=== PATIENT | male | born 1960 | race Caucasian/White ===

== ENCOUNTER 2019-03-08 17:24 | Inpatient (IN) | payer OTHER ==
[2019-03-08] MEDS ORDERED: SODIUM CHLORIDE 0.9% 500 ML 500 ML IV STA (17:39)
--- NOTE | 2019-03-08 17:42 | ED ---
General Adult HPI - General Stated complaint: LEFT SIDE NUMBNESS Time Seen by Provider: 03/08/19 17:33 Source: patient, family, RN notes reviewed, old records reviewed - History of Present Illness Initial comments: 59-year-old male history of hypertension presenting with 1 week of progressive weakness and numbness on the left side of his body. He was seen at outside hospital with these complaints on Sunday, he had CT performed and was ultimately discharged. He will follow-up with neurology on Sunday of this week as an outpatient. He was scheduled for an MRI but this cannot take place for approximately 5 weeks. His symptoms have failed to improve aneurysm progressed over this week. He's had weakness in the left leg, left arm and left facial droop with numbness in this distribution. No headache. No chest pain. No abdominal pain. No fever or chills. - Related Data Home Medications Medication Instructions Recorded Confirmed Ibuprofen [Motrin] 800 mg PO TID PRN 03/08/19 03/08/19 Metoprolol Succinate (ER) [Toprol 100 mg PO DAILY 03/08/19 03/08/19 Xl] NIFEdipine [NIFEdipine ER] 60 mg PO DAILY 03/08/19 03/08/19 Rosuvastatin Calcium [Crestor] 20 mg PO HS 03/08/19 03/08/19 Tamsulosin HCl [Flomax] 0.4 mg PO DAILY 03/08/19 03/08/19 cloNIDine HCL [Catapres] 0.2 mg PO DAILY 03/08/19 03/08/19 Allergies Allergy/AdvReac Type Severity Reaction Status Date / Time No Known Allergies Allergy Verified 03/08/19 18:14 Review of Systems ROS Statement: Those systems with pertinent positive or pertinent negative responses have been documented in the HPI. ROS Other: All systems not noted in ROS Statement are negative. General Exam General appearance: alert, in no apparent distress Head exam: Present: atraumatic, normocephalic Eye exam: Present: normal appearance, PERRL, EOMI ENT exam: Present: normal exam Neck exam: Present: normal inspection. Absent: tenderness, meningismus Respiratory exam: Present: normal lung sounds bilaterally. Absent: respiratory distress, wheezes Cardiovascular Exam: Present: regular rate, normal rhythm GI/Abdominal exam: Present: soft. Absent: distended, tenderness, guarding Extremities exam: Present: normal inspection, normal capillary refill. Absent: pedal edema, calf tenderness Neurological exam: Present: alert, oriented X3, motor sensory deficit. Absent: CN II-XII intact Psychiatric exam: Present: normal affect Skin exam: Present: warm, dry, intact. Absent: cyanosis, diaphoretic Course Vital Signs 03/08/19 17:38 Temperature 98.3 F Pulse Rate 70 Respiratory 18 Rate Blood Pressure 147/87 O2 Sat by Pulse 98 Oximetry EKG Findings - EKG Comments: EKG Findings:: EKG: Normal sinus rhythm, rate 69, GA interval 196, QRS duration 82, QTC 459 ST segment elevation. Medical Decision Making - Medical Decision Making 59-year-old male with one-week history of progressive left-sided weakness. Patient is well outside of time I for TPA or intervention. He is having increased difficulty ambulating. His daughter does state that he's had some urinary and bowel incontinence. Patient denies headache. Head CT was repeated, negative for acute intracranial hemorrhage mass effect. Patient has normal electrolytes, normal CBC. He is given an aspirin, started on statin. He will be admitted for further stroke workup, may require imaging of her spine given the bilateral and bladder issue. He will require likely physical therapy has had he's having increased gait instability. Case is discussed with Nettie urena for Dr. Rodríguez - Lab Data Result diagrams: 03/08/19 17:40 03/08/19 17:40 Lab Results 03/08/19 03/08/19 03/08/19 Range/Units 17:40 17:40 17:40 WBC 5.4 (3.8-10.6) k/uL RBC 4.87 (4.30-5.90) m/uL Hgb 14.2 (13.0-17.5) gm/dL Hct 43.3 (39.0-53.0) % MCV 88.9 (80.0-100.0) fL MCH 29.1 (25.0-35.0) pg MCHC 32.8 (31.0-37.0) g/dL RDW 15.6 H (11.5-15.5) % Plt Count 91 L (150-450) k/uL Neutrophils % 55 % Lymphocytes % 35 % Monocytes % 6 % Eosinophils % 2 % Basophils % 1 % Neutrophils # 3.0 (1.3-7.7) k/uL Lymphocytes # 1.9 (1.0-4.8) k/uL Monocytes # 0.3 (0-1.0) k/uL Eosinophils # 0.1 (0-0.7) k/uL Basophils # 0.0 (0-0.2) k/uL PT 11.4 (9.0-12.0) sec INR 1.1 (<1.2) APTT 25.7 (22.0-30.0) sec Sodium 141 (137-145) mmol/L Potassium 4.1 (3.5-5.1) mmol/L Chloride 108 H (98-107) mmol/L Carbon Dioxide 24 (22-30) mmol/L Anion Gap 9 mmol/L BUN 15 (9-20) mg/dL Creatinine 0.80 (0.66-1.25) mg/dL Est GFR (CKD-EPI)AfAm >90 (>60 ml/min/1.73 sqM) Est GFR (CKD-EPI)NonAf >90 (>60 ml/min/1.73 sqM) Glucose 102 H (74-99) mg/dL Calcium 9.2 (8.4-10.2) mg/dL Total Bilirubin 0.5 (0.2-1.3) mg/dL AST 42 (17-59) U/L ALT 36 (21-72) U/L Alkaline Phosphatase 90 (38-126) U/L Troponin I (0.000-0.034) ng/mL Total Protein 7.6 (6.3-8.2) g/dL Albumin 4.3 (3.5-5.0) g/dL 03/08/19 Range/Units 17:40 WBC (3.8-10.6) k/uL RBC (4.30-5.90) m/uL Hgb (13.0-17.5) gm/dL Hct (39.0-53.0) % MCV (80.0-100.0) fL MCH (25.0-35.0) pg MCHC (31.0-37.0) g/dL RDW (11.5-15.5) % Plt Count (150-450) k/uL Neutrophils % % Lymphocytes % % Monocytes % % Eosinophils % % Basophils % % Neutrophils # (1.3-7.7) k/uL Lymphocytes # (1.0-4.8) k/uL Monocytes # (0-1.0) k/uL Eosinophils # (0-0.7) k/uL Basophils # (0-0.2) k/uL PT (9.0-12.0) sec INR (<1.2) APTT (22.0-30.0) sec Sodium (137-145) mmol/L Potassium (3.5-5.1) mmol/L Chloride (98-107) mmol/L Carbon Dioxide (22-30) mmol/L Anion Gap mmol/L BUN (9-20) mg/dL Creatinine (0.66-1.25) mg/dL Est GFR (CKD-EPI)AfAm (>60 ml/min/1.73 sqM) Est GFR (CKD-EPI)NonAf (>60 ml/min/1.73 sqM) Glucose (74-99) mg/dL Calcium (8.4-10.2) mg/dL Total Bilirubin (0.2-1.3) mg/dL AST (17-59) U/L ALT (21-72) U/L Alkaline Phosphatase (38-126) U/L Troponin I <0.012 (0.000-0.034) ng/mL Total Protein (6.3-8.2) g/dL Albumin (3.5-5.0) g/dL Disposition Clinical Impression: Cerebrovascular accident Disposition: ADMITTED IP TO THIS [facility] Condition: Stable Is patient prescribed a controlled substance at d/c from ED?: No Referrals: Chase Boyd MD [Primary Care Provider] - 1-2 days Decision to Admit Reason: Admit from EC Decision Date: 03/08/19 Decision Time: 19:00
[2019-03-08 18:04] LABS: Basophils % (A) 1 %; Eosinophils # (A) 0.1 k/uL (0-0.7); Eosinophils % (A) 2 %; HCT 43.3 % (39.0-53.0); HGB 14.2 gm/dL (13.0-17.5); Lymphocytes # (A) 1.9 k/uL (1.0-4.8); Lymphocytes % (A) 35 %; MCH 29.1 pg (25.0-35.0); MCHC 32.8 g/dL (31.0-37.0); MCV 88.9 fL (80.0-100.0); Mean Platelet Volume 8.4; Monocytes # (A) 0.3 k/uL (0-1.0); Monocytes % (A) 6 %; Neutrophils % (A) 55 %; RBC 4.87 m/uL (4.30-5.90); RDW 15.6 % (11.5-15.5); WBC 5.4 k/uL (3.8-10.6)
[2019-03-08 18:09] LABS: INR 1.1 (<1.2); Partial Thromboplastin Time 25.7 sec (22.0-30.0); Prothrombin Time 11.4 sec (9.0-12.0)
[2019-03-08 18:22] LABS: ALT 36 U/L (21-72); AST 42 U/L (17-59); African American GFR (CKD) >90 (>60 ml/min/1.73 sqM); Albumin 4.3 g/dL (3.5-5.0); Alkaline Phosphatase 90 U/L (38-126); Anion Gap 9 mmol/L; Blood Urea Nitrogen 15 mg/dL (9-20); Calcium 9.2 mg/dL (8.4-10.2); Carbon Dioxide 24 mmol/L (22-30); Chloride 108 mmol/L (98-107); Glucose 102 mg/dL (74-99); Platelet Count 91 k/uL (150-450); Potassium 4.1 mmol/L (3.5-5.1); Sodium 141 mmol/L (137-145); Total Bilirubin 0.5 mg/dL (0.2-1.3); Total Protein 7.6 g/dL (6.3-8.2)
--- NOTE | 2019-03-08 18:42 | XR ---
EXAMINATION TYPE: XR chest 1V portable DATE OF EXAM: 03/08/2019 COMPARISON: NONE HISTORY: Altered mental status TECHNIQUE: Single frontal view of the chest is obtained. FINDINGS: There is no heart failure nor confluent pneumonic infiltrate. Costophrenic angles are ele r. IMPRESSION: No active cardiopulmonary disease. Normal heart.
--- NOTE | 2019-03-08 18:43 | CT ---
EXAMINATION TYPE: CT brain wo con DATE OF EXAM: 03/08/2019 COMPARISON: None HISTORY: numbness to left side of body CT DLP: 1260.4 mGycm Automated exposure control for dose reduction was used. FINDINGS: There is mild cerebral atrophy. There is no mass effect nor midline shift. There is no sign of intrac ranial hemorrhage. Calvarium is intact. IMPRESSION: MILD ATROPHY. NO ACUTE INTRACRANIAL ABNORMALITY.
[2019-03-08] MEDS ORDERED: ASPIRIN 325 MG TAB PO STA (18:54)
[2019-03-08] MEDS: SODIUM CHLORIDE 0.9% 1,000 ML IV SCH (21:10)
[2019-03-08] MEDS ORDERED: ACETAMINOPHEN TAB 325 MG TAB PO PRN (21:47)
[2019-03-08] MEDS: ATORVASTATIN 80 MG TAB PO SCH (21:50)
[2019-03-08] MEDS: NICOTINE 21MG/24HR PATCH TRANSDERM SCH (21:50)
[2019-03-09 03:48] LABS: Cholesterol 188 mg/dL (<200); HDL Cholesterol 29 mg/dL (40-60); LDL Cholesterol,Calculated 112 mg/dL (0-99); Triglycerides 237 mg/dL (<150)
--- NOTE | 2019-03-09 08:33 | US ---
EXAMINATION TYPE: US carotid duplex BILAT DATE OF EXAM: 03/09/2019 COMPARISON: NONE CLINICAL HISTORY: Stenosis. Pt states admitted in hospital for left side numbness, stroke symptoms EXAM MEASUREMENTS: RIGHT: Peak Systolic Velocity (PSV) cm/sec ----- Right CCA: 75.7 ----- Right ICA: 593.7 ----- Right ECA: 129.9 ICA/CCA ratio: 7.8 RIGHT: End Diastole cm/sec ----- Right CCA: 14.2 ----- Right ICA: 241.1 ----- Right ECA: 17.5 LEFT: Peak Systolic Velocity (PSV) cm/sec ----- Left CCA: 107.4 ----- Left ICA: 112.1 ----- Left ECA: 133.4 ICA/CCA ratio: 1.0 LEFT: End Diastole cm/sec ----- Left CCA: 27.2 ----- Left ICA: 35.7 ----- Left ECA: 22.0 VERTEBRALS (direction of flow): Right Vertebral: Antegrade Left Vertebral: Antegrade Rhythm: Normal Soft plaque within right proximal ICA causing significant elevated velocities and abnormal ratio report called to the patient's nurse. IMPRESSION: 1. Atherosclerotic changes with findings suggestive of a severe to critical stenosis involving the pr oximal right ICA. Criteria for Assigning % of Stenosis / Diameter reduction (Estimation based on the indirect measurements of the internal carotid artery velocities (ICA PSV). 1. Normal (no stenosis)=ICA PSV < 125 cm/s: ratio < 2.0: ICA EDV<40 cm/s. 2. Less than 50% stenosis=ICA PSV < 125 cm/s: ratio < 2.0: ICA EDV<40 cm/s. 3. 50 to 69% stenosis=ICA PSV of 125 to 230 cm/s: ration 2.0 ? 4.0: ICA EDV 40-100 cm/s. 4. Greater than 70% stenosis to near occlusion= ICA PSV > 230 cm/s: ratio > 4.0: ICA EDV > 100 cm/s. 5. Near occlusion= ICA PSV velocities may be low or undetectable: variable ratio and ICA EDV. 6. Total occlusion=unable to detect flow.
[2019-03-09] MEDS: ASPIRIN 325 MG TAB PO SCH (09:01)
[2019-03-09] MEDS: NICOTINE 21MG/24HR PATCH TRANSDERM SCH (09:02)
[2019-03-09] MEDS: METOPROLOL SUCCINATE (ER) 100 MG TAB.ER.24H PO SCH (09:02)
[2019-03-09] MEDS: TAMSULOSIN 0.4 MG CAP.ER.24H PO SCH (09:05)
[2019-03-09] MEDS: SODIUM CHLORIDE 0.9% 1,000 ML IV SCH (11:17)
[2019-03-09] MEDS ORDERED: CALCIUM CARBONATE 500 MG CHEWABLE PO PRN (11:42)
[2019-03-09] MEDS: PANTOPRAZOLE 40 MG TABLET PO SCH (12:21)
[2019-03-09] MEDS ORDERED: HYDROcodone/APAP 5-325MG 1 EACH TAB PO PRN (13:33)
[2019-03-09] MEDS ORDERED: ALPRAZolam 0.25 MG TAB PO PRN (13:33)
[2019-03-09] MEDS ORDERED: TEMAZEPAM 15 MG CAP PO PRN (13:33)
[2019-03-09] MEDS: cloNIDine HCL 0.2 MG TAB PO SCH (14:14)
[2019-03-09] MEDS: HEPARIN SODIUM,PORCINE 5,000 UNIT/ML 1 ML VIAL SQ SCH ×2 (14:15→19:48)
--- NOTE | 2019-03-09 15:29 | P.GSCN ---
History of Present Illness Consult date: 03/09/19 Reason for Consult: Carotid Stenosis Requesting physician: Saima Olivo History of present illness: This is a 59-year-old male with a history of hypertension and newer onset left sided numbness who has been admitted to [facility] under the care of Dr. Olivo. The patient states that a little more than a week ago he began having numbness in the left lower leg initially was below the knee and then cont inued up the leg. He was seen at outside hospital with those symptoms a CT was performed. He was ultimately discharged and seen in follow-up with the neurologist as an outpatient. In discussion with the patient and his daughter the neurologist was more concerned with a possible pinched nerve causing these issues, and MRI was ordered but was scheduled for approximate 5 weeks out. Over the past week she has continued to have numbness of his left leg and a heaviness with inability to move it as well. He is still able to move his leg overall. He denies any upper extremity symptoms. He denies any changes in speech pattern or visual symptoms. He has never had issues like this before. He has no trouble recollecting words. Review of Systems 12 point ROS perfomed, pertinent positives and negatives per the HPI - Musculoskeletal Reports as per HPI, Reports leg numbness/tingling Past Medical History Past Medical History: COPD, Hyperlipidemia, Hypertension History of Any Multi-Drug Resistant Organisms: None Reported Past Surgical History: No Surgical Hx Reported Additional Past Surgical History / Comment(s): carpal tunnel bilat hands with release, RT knee miniscus repair. Past Anesthesia/Blood Transfusion Reactions: No Reported Reaction Past Psychological History: No Psychological Hx Reported Smoking Status: Current every day smoker Past Alcohol Use History: None Reported Past Drug Use History: None Reported Medications and Allergies Home Medications Medication Instructions Recorded Confirmed Type Ibuprofen [Motrin] 800 mg PO TID PRN 03/08/19 03/08/19 History Metoprolol Succinate (ER) [Toprol 100 mg PO DAILY 03/08/19 03/08/19 History Xl] NIFEdipine [NIFEdipine ER] 60 mg PO DAILY 03/08/19 03/08/19 History Rosuvastatin Calcium [Crestor] 20 mg PO HS 03/08/19 03/08/19 History Tamsulosin HCl [Flomax] 0.4 mg PO DAILY 07/06/19 07/06/19 History cloNIDine HCL [Catapres] 0.2 mg PO DAILY 03/08/19 03/08/19 History Allergies Allergy/AdvReac Type Severity Reaction Status Date / Time No Known Allergies Allergy Verified 03/08/19 18:14 Surgical - Exam Vital Signs Temp Pulse Resp BP Pulse Ox 98.3 F 70 18 147/87 98 03/08/19 17:38 03/08/19 17:38 03/08/19 17:38 03/08/19 17:38 03/08/19 17:38 no evidence of carotid bruits. Cranial nerves II through XII grossly intact. No facial droop. No aphasia. Bilateral upper extremity strength equal bilaterally. Some decreased strength in left thigh. Equal plantar flexion bilaterally - General well developed, obese - Eyes PERRL, normal ocular movement - ENT normal mucosa, no congestion - Neck no masses, no bruits, no venous distension - Respiratory normal expansion, clear to auscultation - Cardiovascular Rhythm: regular Heart Sounds: normal: S1, S2 - Abdomen Abdomen: soft, non tender - Integumentary no rash - Neurologic normal coordination, normal sensation - Musculoskeletal other - Psychiatric oriented to time, oriented to person, oriented to place, speech is normal, memory intact Results Ultrasound report and imaging are reviewed. The right ICA peak systolic velocity measures 593.7 with a ratio of 7.8. This correlates with high-grade critical stenosis of the right ICA. The left ICA is less than 50% stenosis - Labs 03/08/19 17:40 03/08/19 17:40 Abnormal Lab Results - Last 24 Hours (Table) 03/08/19 03/08/19 03/08/19 Range/Units 17:40 17:40 17:40 RDW 15.6 H (11.5-15.5) % Plt Count 91 L (150-450) k/uL Chloride 108 H (98-107) mmol/L Glucose 102 H (74-99) mg/dL Triglycerides 237 H (<150) mg/dL LDL Cholesterol, Calc 112 H (0-99) mg/dL HDL Cholesterol 29 L (40-60) mg/dL Diabetes panel 03/08/19 03/08/19 Range/Units 17:40 17:40 Sodium 141 (137-145) mmol/L Potassium 4.1 (3.5-5.1) mmol/L Chloride 108 H (98-107) mmol/L Carbon Dioxide 24 (22-30) mmol/L BUN 15 (9-20) mg/dL Creatinine 0.80 (0.66-1.25) mg/dL Glucose 102 H (74-99) mg/dL Calcium 9.2 (8.4-10.2) mg/dL AST 42 (17-59) U/L ALT 36 (21-72) U/L Alkaline Phosphatase 90 (38-126) U/L Total Protein 7.6 (6.3-8.2) g/dL Albumin 4.3 (3.5-5.0) g/dL Triglycerides 237 H (<150) mg/dL HDL Cholesterol 29 L (40-60) mg/dL Calcium panel 03/08/19 Range/Units 17:40 Calcium 9.2 (8.4-10.2) mg/dL Albumin 4.3 (3.5-5.0) g/dL Pituitary panel 03/08/19 Range/Units 17:40 Sodium 141 (137-145) mmol/L Potassium 4.1 (3.5-5.1) mmol/L Chloride 108 H (98-107) mmol/L Carbon Dioxide 24 (22-30) mmol/L BUN 15 (9-20) mg/dL Creatinine 0.80 (0.66-1.25) mg/dL Glucose 102 H (74-99) mg/dL Calcium 9.2 (8.4-10.2) mg/dL Adrenal panel 03/08/19 Range/Units 17:40 Sodium 141 (137-145) mmol/L Potassium 4.1 (3.5-5.1) mmol/L Chloride 108 H (98-107) mmol/L Carbon Dioxide 24 (22-30) mmol/L BUN 15 (9-20) mg/dL Creatinine 0.80 (0.66-1.25) mg/dL Glucose 102 H (74-99) mg/dL Calcium 9.2 (8.4-10.2) mg/dL Total Bilirubin 0.5 (0.2-1.3) mg/dL AST 42 (17-59) U/L ALT 36 (21-72) U/L Alkaline Phosphatase 90 (38-126) U/L Total Protein 7.6 (6.3-8.2) g/dL Albumin 4.3 (3.5-5.0) g/dL Assessment and Plan Assessment: #1 severe high-grade right ICA stenosis, likely asymptomatic #2 left lower extremity numbness #3 isolated left proximal leg weakness #4 hyperlipidemia #5 hypertriglyceridemia #6 hypertension #7 BPH #8 COPD #9 active tobacco abuse Plan: At this time upon evaluation the patient and his clinical history, symptoms he describes are not typical of TIA/stroke. definitely would agree with neurology consultation and MRI to evaluate for any areas possible infarct. Regardless of this the patient does have severe high-grade stenosis of the right internal carotid artery with an area of soft plaque and at this time I did order a CT angiogram for surgical planning and added Plavix to his regimen. He is to maintain on aspirin, Plavix and statin. Discussion was had regarding tobacco cessation. He will likely need a carotid endarterectomy this admission given the high-grade stenosis and plaque morphology. Will await neurology input and MRI findings to schedule. Surgical clearance per medicine recommendations.
--- NOTE | 2019-03-09 15:44 | CT ---
EXAMINATION TYPE: CT angio neck DATE OF EXAM: 03/09/2019 HISTORY: Follow up carotid. Left leg numbness COMPARISON: None CT DLP: 948.4 mGycm. Automated Exposure Control for Dose Reduction was Utilized. TECHNIQUE: CTA scan of the neck is performed with IV Contrast, patient injected with 50 mL of Isovue 370, axial images are obtained, coronal and sagittal reformatted images are reviewed. Three-D recons tructed images are created on an independent workstation and reviewed. FINDINGS: There is normal branching pattern of the great vessels on the aortic arch. There is bilateral arteria l flow in the subclavian arteries. There is bilateral vertebral artery flow. There is arterial flow i n the common internal and external carotid arteries bilaterally. There is more than 80% stenosis at t he origin of the right internal carotid artery. I see no evidence of stenosis left internal carotid a rtery. There is no evidence of carotid artery aneurysm or dissection. There is no vertebral dissectio n. There is arterial flow in the vertebrobasilar artery system. IMPRESSION: severe stenosis at the origin of the right internal carotid artery.
[2019-03-09] MEDS: CLOPIDOGREL 75 MG TAB PO SCH (16:25)
[2019-03-09 16:58] LABS: Appearance,Urine Clear (Clear); Bilirubin,Urine Negative (Negative); Blood,Urine Negative (Negative); Color,Urine Yellow; Glucose,Urine (UA) Negative (Negative); Ketones,Urine Negative (Negative); Leukocyte Esterase,Urine Negative (Negative); Nitrite,Urine Negative (Negative); Protein,Urine Negative (Negative)
--- NOTE | 2019-03-09 19:14 | HP ---
HISTORY AND PHYSICAL DATE OF SERVICE: 03/09/2019 CHIEF COMPLAINT: Numbness of the left side of the body. HISTORY OF PRESENT ILLNESS: This 59-year-old gentleman with a past medical history of multiple medical problems including COPD, hypertension, hyperlipidemia, being followed by Dr. Boyd in the outpatient setting, was noted to have some numbness of the for the last 1 week. The patient had initially CT scan performed which did not show any acute abnormality. Patient had a followup with Neurology. The patient was seen by Dr. Metcalf as an outpatient. Apparently scheduled for MRI, but is not taking place the next 5 weeks. The symptoms of the numbness is persisting and the patient also has some weakness of the left leg and because of concerns some facial droop and the patient came to [facility] and admitted for evaluation and treatment. After admission, multiple evaluations were done. A CT scan of the brain was done which showed mild atrophy, otherwise no acute abnormalities and chest x-ray showed no active cardiopulmonary disease and carotid Doppler showed vascular changes findings suggestive of severe critical stenosis involving the proximal RCA. Patient admitted for evaluation and treatment. Neurology and vascular surgery evaluation has been sought. There is no history of fever, rigors. No headache, loss of consciousness or seizures. PAST MEDICAL HISTORY: History of COPD, hypertension, hyperlipidemia. MEDICATIONS: Prior to admission include home medications are: 1. Catapres 0.2 daily. 2. Flomax 0.4 daily. 3. Crestor 20 mg q.h.s. 4. Nifedipine ER 60 mg daily. 5. Toprol-XL 100 mg. 6. Motrin 80 mg t.i.d. p.r.n. ALLERGIES: None. FAMILY HISTORY: History of strokes in the family. SOCIAL HISTORY: History of smoking. No history of alcohol intake. REVIEW OF SYSTEMS: ENT: No diminished vision or hearing. CARDIOVASCULAR: No angina or palpitations. RESPIRATORY: As mentioned earlier. GI: No nausea. : No dysuria. NERVOUS SYSTEM: No numbness or tingling. IMMUNOLOGY: No history of asthma or hayfever. MUSCULOSKELETAL: As mentioned earlier. HEMATOLOGY: No history of anemia. ENDOCRINE: No history of diabetes or hypothyroidism. CONSTITUTIONAL: As mentioned earlier. DERMATOLOGY: Negative. RHEUMATOLOGY: Negative. PSYCHIATRY: As mentioned earlier. PHYSICAL EXAMINATION: Alert and oriented x3. Pulse is 66, blood pressure 178/64, respiration 18, temperature 98.1, pulse ox 98% on room air. HEENT: Conjunctivae normal. NECK: No jugular venous distention. CARDIOVASCULAR: S1, S2 muffled. RESPIRATORY: Breath sounds diminished in the bases. Scattered rhonchi and crackles. ABDOMEN: Soft, nontender. No mass palpable. LEGS: No edema, no swelling. NERVOUS SYSTEM: Higher function as mentioned. Moves all limbs, minimal sensory impairment. There is no weakness appreciated. SKIN: No ulcers, rash. JOINTS: No active deforming arthropathy. LABS: WBC 5.2, hemoglobin 14.2, platelets are 91 and glucose 102, platelets 237, LDL is 111. ASSESSMENT: 1. Acute numbness and weakness on the right side, possibly left-sided stroke. 2. Left-sided critical stenosis soft internal carotid artery. 3. Obesity with body mass index of 43.3. 4. Thrombocytopenia of undetermined etiology. 5. Increased random blood sugar. 6. Hyperlipidemia and hypertriglyceridemia. 7. History of hypertension. 8. Hyperlipidemia. 9. History of chronic obstructive pulmonary disease. 10.History of carpal tunnel syndrome. 11.History of nicotine dependence, continued ongoing. RECOMMENDATIONS AND DISCUSSION: This 59-year-old gentleman who presented with multiple medical issues, we will monitor the patient closely. Continue the current medications. We will initiate antiplatelet agents and as well as Lipitor. Neurology consultation. Also get a vascular consultation. MRI has been ordered. Otherwise smoking cessation advised. Continue the home medications. DVT prophylaxis. Proton pump inhibitors. Guarded prognosis because of multiple complex medical issues. Further recommendations to follow. Copy of dictation forwarded to Dr. Boyd who is the primary physician. See orders for details. MMODL / IJN: [id number] /
[2019-03-09] MEDS: ATORVASTATIN 80 MG TAB PO SCH (19:48)
[2019-03-10] MEDS: PANTOPRAZOLE 40 MG TABLET PO SCH (06:23)
[2019-03-10 07:45] LABS: Basophils % (A) 1 %; Eosinophils # (A) 0.1 k/uL (0-0.7); Eosinophils % (A) 2 %; HCT 44.8 % (39.0-53.0); HGB 14.4 gm/dL (13.0-17.5); Lymphocytes # (A) 1.7 k/uL (1.0-4.8); Lymphocytes % (A) 39 %; MCH 29.4 pg (25.0-35.0); MCHC 32.2 g/dL (31.0-37.0); MCV 91.1 fL (80.0-100.0); Mean Platelet Volume 7.6; Monocytes # (A) 0.3 k/uL (0-1.0); Monocytes % (A) 7 %; Neutrophils # (A) 2.1 k/uL (1.3-7.7); Neutrophils % (A) 49 %; RBC 4.92 m/uL (4.30-5.90); RDW 14.4 % (11.5-15.5); WBC 4.3 k/uL (3.8-10.6)
[2019-03-10 07:50] LABS: Platelet Count 94 k/uL (150-450)
[2019-03-10 08:00] LABS: African American GFR (CKD) >90 (>60 ml/min/1.73 sqM); Anion Gap 9 mmol/L; Blood Urea Nitrogen 14 mg/dL (9-20); Calcium 9.4 mg/dL (8.4-10.2); Carbon Dioxide 24 mmol/L (22-30); Chloride 109 mmol/L (98-107); Cholesterol 169 mg/dL (<200); Glucose 115 mg/dL (74-99); HDL Cholesterol 31 mg/dL (40-60); LDL Cholesterol,Calculated 94 mg/dL (0-99); Sodium 142 mmol/L (137-145); Triglycerides 219 mg/dL (<150)
[2019-03-10] MEDS ORDERED: LORazepam 2 MG/ML INJ IV STA ×3 (09:35→14:32)
--- NOTE | 2019-03-10 10:34 | ECHOF ---
Referral Reason:Thrombus MEASUREMENTS -------- HEIGHT: 182.9 cm WEIGHT: 144.7 kg BP: 178/64 RVIDd: 3.6 cm (< 3.3) IVSd: 1.4 cm (0.6 - 1.1) LVIDd: 4.8 cm (3.9 - 5.3) LVPWd: 1.5 cm (0.6 - 1.1) IVSs: 2.0 cm LVIDs: 3.4 cm LVPWs: 1.9 cm LAESV Index (A-L): 16.74 ml/m Ao Diam: 3.3 cm (2.0 - 3.7) AV Cusp: 1.8 cm (1.5 - 2.6) LA Diam: 4.0 cm (2.7 - 3.8) MV EXCURSION: 16.790 mm (> 18.000) MV EF SLOPE: 114 mm/s (70 - 150) EPSS: 0.3 cm MV E Cyrus: 1.02 m/s MV DecT: 180 ms MV A Cyrus: 1.14 m/s MV E/A Ratio: 0.90 RAP: 5.00 mmHg RVSP: 15.06 mmHg FINDINGS -------- Sinus rhythm. This was a technically difficult study with suboptimal views. The left ventricular size is normal. There is moderate concentric left ventricular hypertrophy. O verall left ventricular systolic function is normal with, an EF between 55 - 60 %. The diastolic fi lling pattern is normal for the age of the patient 14.00. The right ventricle is mildly enlarged. Normal LA size by volume 22+/-6 ml/m2. The right atrial size is normal. Lumason used Interatrial and interventricular septum intact. There is mild aortic valve sclerosis. There is no evidence of aortic regurgitation. There is no e vidence of aortic stenosis. Mild mitral annular calcification present. Mild mitral regurgitation is present. Mild tricuspid regurgitation present. There is no evidence of pulmonary hypertension. The right v entricular systolic pressure, as measured by Doppler, is 15.06mmHg. There is no pulmonic regurgitation present. The aortic root size is normal. IVC Not well visulized. Echo free space indicative of a pericardial fat pad. CONCLUSIONS -------- 1. Sinus rhythm. 2. This was a technically difficult study with suboptimal views. 3. The left ventricular size is normal. 4. There is moderate concentric left ventricular hypertrophy. 5. Overall left ventricular systolic function is normal with, an EF between 55 - 60 %. 6. The diastolic filling pattern is normal for the age of the patient 14.00 7. The right ventricle is mildly enlarged. 8. Normal LA size by volume 22+/-6 ml/m2. 9. The right atrial size is normal. 10. Lumason used 11. Interatrial and interventricular septum intact. 12. There is mild aortic valve sclerosis. 13. There is no evidence of aortic regurgitation. 14. There is no evidence of aortic stenosis. 15. Mild mitral annular calcification present. 16. Mild mitral regurgitation is present. 17. Mild tricuspid regurgitation present. 18. There is no evidence of pulmonary hypertension. 19. The right ventricular systolic pressure, as measured by Doppler, is 15.06mmHg. 20. There is no pulmonic regurgitation present. 21. The aortic root size is normal. 22. IVC Not well visulized. 23. Echo free space indicative of a pericardial fat pad. ABATTOIR SUPERVISOR: Effie Edward RDCS
--- NOTE | 2019-03-10 10:58 | P.PN ---
Subjective Progress Note Date: 03/10/19 Patient seen and examined. No changes overnight. Still with some numbness in his left leg. Objective - Vital Signs Vital signs: Vital Signs Temp 97.6 F 03/09/19 20:00 Pulse 65 03/10/19 04:00 Resp 16 03/10/19 04:00 BP 161/82 03/10/19 04:00 Pulse Ox 97 03/10/19 04:00 Intake & Output 03/09/19 03/10/19 03/10/19 18:59 06:59 18:59 Intake Total 480 240 Output Total 400 Balance 80 240 Weight 142.1 kg Intake: Oral 480 240 Output: Urine 400 Other: Voiding Method Toilet # Voids 1 1 - Exam No acute distress, in bed comfortably No respiratory distress. Heart regular rate and rhythm Abdomen soft obese nontender nondistended Extremities warm and dry. There is continued focal proximal weakness of the left leg, decreased sensation left leg. Cranial nerve II through XII are otherwise intact grossly - Labs CBC & Chem 7: 03/10/19 07:24 03/10/19 07:24 Labs: Abnormal Lab Results - Last 24 Hours (Table) 03/09/19 03/10/19 03/10/19 Range/Units 16:48 07:24 07:24 Plt Count 94 L (150-450) k/uL Chloride 109 H (98-107) mmol/L Glucose 115 H (74-99) mg/dL Triglycerides 219 H (<150) mg/dL HDL Cholesterol 31 L (40-60) mg/dL Ur Specific [place] 1.050 H (1.001-1.035) - Imaging and Cardiology CTA neck reviewed. Correlates well with ultrasound, high-grade stenosis, near occlusion of right internal carotid artery Assessment and Plan Assessment: #1 severe high-grade right ICA stenosis - ? Symptomatic #2 left lower extremity numbness #3 isolated left proximal leg weakness #4 hyperlipidemia #5 hypertriglyceridemia #6 hypertension #7 BPH #8 COPD #9 active tobacco abuse Plan: At this time upon evaluation the patient and his clinical history, symptoms he describes are not typical of TIA/stroke. Even so, discussed with neurology does think this could possibly be symptomatic. Patient undergoing MRI today. Re gardless of this the patient does have severe high-grade stenosis of the right internal carotid artery with an area of soft plaque. This is confirmed on computed tomography scan ordered yesterday. He is to maintain on aspirin, Plavix and statin. Discussion was had regarding tobacco cessation. We will tentatively plan for a carotid endarterectomy 03/11 pending medical clearance. Patient was discussed with neurology and nurse practitioner for medicine.
[2019-03-10] MEDS ORDERED: ceFAZolin 3 GM in SODIUM CHLORIDE 0.9% 100 ML IVPB ONE (11:03)
--- NOTE | 2019-03-10 11:20 | CONS ---
CONSULTATION DATE OF SERVICE: 03/10/2019 REFERRING PHYSICIAN: Dr. Olivo. HISTORY OF PRESENT ILLNESS: Thank you for allowing me to evaluate Gurmeet Elkins who is a 59-year-old right- handed white male who presented to [facility] on 03/08/2019 for evaluation of left- sided numbness/weakness. The patient states that about 1-1/2 weeks ago, he woke up and noted a numbness/tingling sensation involving the left lower extremity distal to the knee. He has had issues with lower extremity swelling and initially attributed this sensation to the swelling and therefore did not seek medical attention "right away." Despite the numbness and tingling, the patient states the strength and coordination in the left foot and left lower extremity were intact, he denied new back pain or similar symptoms on the right lower extremity. He has never had similar symptoms in the past. Five to six days later, the patient states that he woke up and noted numbness involving the entire left lower extremity as well as the left side of the torso extending above the nipple line and when he went to use a Q-tip, noted this similar sensation involving the left ear and left side of the face. He states the left arm was spared and there were no similar symptoms on the right. This was accompanied by weakness involving the left lower extremity although the patient still was able to walk on it. He denied weakness involving the left upper extremity or a left facial droop. When the symptoms developed, there was no associated vertigo, diplopia, dysarthria, difficulty chewing/swallowing, or hiccups. He denies previous history of stroke or seizure. He was not taking aspirin or other anti-platelet/anticoagulant medication at the time of this event. He denies neck pain or Lhermitte phenomenon. At this time, the patient states the numbness and left lower extremity weakness is are a "little better" and he extended his left lower extremity against gravity, stating that this was better than he was able to do over the last few days. The patient states when the increased left-sided symptoms developed, he did present to [facility] who evaluated the patient and subsequently discharged him home, scheduling him for an outpatient neurologic evaluation, which the patient believes took place on 03/07/2019, at which time he was set up for an MRI of the brain/cervical spine although that appointment was 5 weeks out and family wanted to pursue a quicker evaluation prompting him to present to [facility]. During this hospitalization, the patient had a carotid ultrasound, which demonstrated severe to critical stenosis of the right internal carotid artery and CTA of the neck vessels confirmed greater than 80% stenosis of the right internal carotid artery without significant stenosis on the left. Vascular Surgery has already evaluated the patient and he is currently maintained on Plavix, aspirin 325 mg daily, and Lipitor. ALLERGIES: No known drug allergies. HOME MEDICATIONS: Clonidine, Flomax, Crestor, nifedipine, Toprol-XL, and Motrin. PAST MEDICAL HISTORY: Hypertension, COPD, hyperlipidemia, obesity, tobacco abuse, and left ear deafness (which patient states has been present over the past 10-12 years). PAST SURGICAL HISTORY: Bilateral carpal tunnel release and right knee arthroscopy. SOCIAL HISTORY: The patient smokes 1 pack per day and smoked for 40+ years. He denied alcohol or drug use. He is with 3 daughters and lives in a house with his daughter. He has not been using any assistive devices to ambulate at home prior to this event. FAMILY HISTORY: The patient's mother is with a history of ovarian cancer. Father is alive at 84 with history of cardiac arrhythmia and arthritis. There is no family history of epilepsy, Parkinson's or other neurologic disease. REVIEW OF SYSTEMS: Fourteen systems are reviewed and no additional points are identified. The review of systems is documented in the history and physical. PHYSICAL EXAM: In general, patient is a pleasant, a fair historian. Affect is normal. He is overweight, receptive to the examiner and appears of stated age. There are no family members at the bedside. When I entered the room, the patient was ambulating despite she has a left lower extremity weakness. VITAL SIGNS: Blood pressure is 161/82 with pulse of 65, respirations 16, temperature 97.6, weight is 142 kg on a 6 foot 0-inch frame. SKIN/EXTREMITIES: Mild arthritic change is noted in the hands. HEAD AND NECK: No tenderness or signs of trauma. Neck is supple without meningeal signs. Arteries are nontender and without bruits. HEART: Regular rate and rhythm. HIGHER CORTICAL FUNCTION: MENTAL STATUS: Patient was alert and oriented to time, place, and person. He was able to name, repeat and read. There was no right and left disorientation, finger- agnosia, extinction to double simultaneous stimulation or dysarthria. CRANIAL NERVES 2 THROUGH 12: Pupils are equal and reactive to light symmetrically. No afferent pupillary defect. Visual dosdon are intact to confrontation. III, IV, : No ptosis. Extraocular movements are full. No nystagmus. V: Patient reports diminution to light touch involving the left size (as compared to the right). Pinprick was symmetric. Motor 5 intact. VII: No facial asymmetry. VII: Acuity. reduced finger nub on the left. The patient reports long-standing left ear deafness. VIII, X: Palate roc in the midline. XI: Trapezius intact. XII: Tongue protruded midline without fasciculation or atrophy. MOTOR EXAMINATION: There is no pronator drift. Normal bulk and tone is noted in all major muscle groups with no involuntary movements noted. Strength is 5/5 involving the bilateral upper and right lower extremity. Strength in the left lower extremity was 5/5 except at the iliopsoas and hamstrings, which were all 4+/5. SENSORY: Patient reports diminution to pinprick and light touch involving the left lower extremity as compared to the right upper extremities were symmetric. The patient reports reduction in sensation along the thorax extending to the cervicothoracic junction. REFLEXES: Right side listed first: Biceps 1/1, brachioradialis 1/1, triceps 1/1, patella 2/2. Ankle 0/0. Plantar responses are flexor on the right and extensor on the left. Morales's is absent. COORDINATION: Bhquma-gd-tkku movements are intact. Adan-hz-nldu demonstrates clear dysmetria with left eusg-mt-kybt, this was intact on the right. Rapid alternating movements are symmetric with finger tapping, foot tapping was mildly slowed on the left. DIAGNOSTIC TESTING: Patient had a CT scan of the brain without contrast, which demonstrated no acute pathology. As described above, Carotid ultrasound and CTA of the neck vessels demonstrated greater than 80% stenosis. The right internal carotid artery was without significant stenosis on the left. Telemetry has revealed normal sinus rhythm. LAB WORK: The patient's lab work demonstrates a white blood count of 4.3 with a hemoglobin of 14.4, platelet count 94. Sodium 142, potassium 4.0, BUN 14 with a creatinine of 0.88. INR 1.1. Urinalysis negative. Cholesterol 169 with triglycerides of 219, LDL 94, HDL 31, calcium 9.4. ALT 36, AST 42, troponin negative. IMPRESSION: 1. Left face/thorax/lower extremity numbness with left lower extremity weakness/ataxia, likely secondary to right hemispheric infarct. With the reported sensory level at the cervicothoracic junction, it is difficult to exclude cervical spine pathology, although the patient denies neck pain/Lhermitte's phenomenon. If ischemic in nature, etiology is likely secondary to the issues discussed ion #2. The patient's risk factors for stroke include hypertension, hyperlipidemia, obesity, tobacco abuse, carotid occlusive disease, and male sex. The patient was not on aspirin or other anti-platelet/anticoagulant medication at the time of this event. 2. Greater than 80% stenosis of right internal carotid artery per CTA without significant stenosis on the left. 3. Thrombocytopenia. 4. Medical problems including long-standing left ear deafness and chronic obstructive pulmonary disease. RECOMMENDATION: 1. I discussed my impression and plan with the patient and he expressed understanding. 2. Agree with pursuing MRI of the brain, will add MRI of the cervical spine with and without contrast. 3. Agree with Plavix/aspirin and Lipitor. 4. The patient has already been seen by Vascular Surgery. 5. Risk factor modification, strongly recommend the patient quit smoking!! 6. Physical therapy evaluation and treatment. 7. Echocardiogram is pending at the time of this dictation, the patient is maintained on telemetry, which has demonstrated normal sinus rhythm to date. 8. Will follow with you. 9. Thank you for allowing me to participate in the care of your patient. MMODL / IJN: [id number] / MARLENI
[2019-03-10] MEDS: NICOTINE 21MG/24HR PATCH TRANSDERM SCH (11:32)
[2019-03-10] MEDS: ASPIRIN 325 MG TAB PO SCH (11:33)
[2019-03-10] MEDS: METOPROLOL SUCCINATE (ER) 100 MG TAB.ER.24H PO SCH (11:34)
[2019-03-10] MEDS: CLOPIDOGREL 75 MG TAB PO SCH (11:34)
[2019-03-10] MEDS: cloNIDine HCL 0.2 MG TAB PO SCH (11:34)
[2019-03-10] MEDS: TAMSULOSIN 0.4 MG CAP.ER.24H PO SCH (11:35)
[2019-03-10] MEDS: HEPARIN SODIUM,PORCINE 5,000 UNIT/ML 1 ML VIAL SQ SCH ×2 (11:36→20:16)
--- NOTE | 2019-03-10 15:21 | MR ---
EXAMINATION TYPE: MR brain wo con DATE OF EXAM: 03/10/2019 COMPARISON: CT brain 03/08/2019 HISTORY: left sided numbness, lack of coordination, r/o cva CONTRAST: Performed utilizing 0 mL intravenous Gadavist gadolinium contrast. TECHNIQUE: Multiplanar, multiecho imaging on a 3.0 Gisselle magnet is performed through the brain. Stud y is not performed within 24 hours of arrival to the hospital. Fast sequencing was performed due to c laustrophobia despite medication. The craniovertebral junction is normal. The pituitary is normal. Diffusion-weighted imaging is performed. There are multiple cortical and subcortical hyperintensitie s to the bilateral centrum semiovale. This is greater on the right than on the left. Additionally, th ere is a large occipital cortical infarct on the right near the vertex. Punctate hyperintensities adj acent to the occipital horn of the right lateral ventricle. The hyperintensities on inversion recovery weighted sequence corresponding to the diffusion abnormali ties. Ventricles and sulci are appropriate for the patient age. IMPRESSIONS: 1. Multiple acute cortical and subcortical ischemic type changes evident on diffusion and inversion r ecovery weighted sequences.
--- NOTE | 2019-03-10 17:09 | PN ---
PROGRESS NOTE DATE OF SERVICE: 03/10/2019 This 59-year-old gentleman who was admitted with significant weakness and numbness of the left foot was having significant stenosis of the right internal carotid artery, also. The patient was recommend to have an MRI scan to rule out an acute stroke. Vascular Surgery is planning surgery tomorrow. Otherwise the patient is medically stable. A 2D echo with Doppler done by Cardiology showed an ejection fraction of about 50% to 60% and no significant valvular abnormalities. The EKG is also noted. Past medical history reviewed. REVIEW OF SYSTEMS: CARDIOVASCULAR SYSTEM: No angina, palpitations. RESPIRATORY SYSTEM: No cough, hemoptysis. GI: No nausea, vomiting. : No dysuria or retention. NERVOUS SYSTEM: As mentioned earlier. CURRENT MEDICATIONS: Reviewed. They include: 1. Tylenol 650 q.6. 2. [place] 5 mg q.6. 3. Xanax 0.25 t.i.d. 4. Aspirin 325 mg daily. 5. Lipitor 80 mg. 6. Tums 1000 mg b.i.d. 7. Plavix 75 mg daily. 8. Heparin 5000 units subcutaneously b.i.d. 9. Toprol-XL 100 mg p.o. daily. 10.Habitrol 21 daily. 11.Procardia XL 60 mg daily. 12.Protonix 40 mg daily. 13.Flomax 0.4 daily. 14.Restoril 15 mg at bedtime p.r.n. PHYSICAL EXAMINATION: Patient is alert, oriented x3. Pulse 65, blood pressure 161/82, respirations 16, temperature normal, pulse ox 97% on room air. HEENT: Conjunctivae normal. Oral mucosa moist. NECK: No jugular venous distention. No carotid bruit. No lymph node enlargement. CARDIOVASCULAR SYSTEM: S1, S2 muffled. No S3. No S4. RESPIRATORY SYSTEM: Breath sounds diminished at the bases. No rhonchi. No crackles. ABDOMEN: Soft, obese, nontender. No mass palpable. LEGS: No edema. No swelling. NERVOUS SYSTEM: Minimal weakness and some numbness also present on the left side. SKIN: No ulcer, rash, bleeding. JOINTS: No active deforming arthropathy. LABS/IMAGING: WBC 4.3, platelets 94. Sodium 142, potassium 4, and glucose 115. Triglycerides 219. UA noted. Chest x-ray done on admission showed no active cardiopulmonary disease. ASSESSMENT: 1. Acute numbness and weakness on the left side of the body, possibly caused by a right-sided stroke. 2. Right-sided critical carotid stenosis of internal carotid artery. 3. Obesity with body mass index of 43.3. 4. Thrombocytopenia of undetermined etiology. 5. Increased random blood sugar. 6. Hyperlipidemia. 7. Hypertriglyceridemia. 8. History of hypertension. 9. History of chronic obstructive pulmonary disease. 10.History of carpal tunnel syndrome. 11.History of nicotine dependence, continued ongoing. RECOMMENDATIONS AND DISCUSSION: In this 59-year-old gentleman who presented with multiple medical issues, at this time I recommend to continue current medications, continue symptomatic treatment. Continue with the antiplatelet agents and antihyperlipidemic agents. Otherwise, trying to obtain MRI; however, the patient is clinically stable and cleared for surgery tomorrow by Dr. Sandoval. I will continue to follow. Further recommendations to follow. See orders for further details. MMODL / IJN: [id number] / MTDD
[2019-03-10] MEDS: SODIUM CHLORIDE 0.9% 1,000 ML IV SCH (20:06)
[2019-03-10] MEDS: ATORVASTATIN 80 MG TAB PO SCH (20:16)
[2019-03-11] MEDS: TAMSULOSIN 0.4 MG CAP.ER.24H PO SCH (05:57)
[2019-03-11] MEDS: HEPARIN SODIUM,PORCINE 5,000 UNIT/ML 1 ML VIAL SQ SCH ×2 (05:57→20:21)
[2019-03-11] MEDS: METOPROLOL SUCCINATE (ER) 100 MG TAB.ER.24H PO SCH (06:01)
[2019-03-11] MEDS: ASPIRIN 325 MG TAB PO SCH (06:01)
[2019-03-11] MEDS: PANTOPRAZOLE 40 MG TABLET PO SCH (06:01)
[2019-03-11] MEDS: CLOPIDOGREL 75 MG TAB PO SCH (06:01)
[2019-03-11] MEDS: cloNIDine HCL 0.2 MG TAB PO SCH (06:01)
[2019-03-11 06:51] LABS: Basophils % (A) 1 %; Eosinophils # (A) 0.1 k/uL (0-0.7); Eosinophils % (A) 2 %; HCT 42.8 % (39.0-53.0); HGB 13.9 gm/dL (13.0-17.5); Lymphocytes # (A) 1.8 k/uL (1.0-4.8); Lymphocytes % (A) 36 %; MCH 29.1 pg (25.0-35.0); MCHC 32.4 g/dL (31.0-37.0); MCV 89.9 fL (80.0-100.0); Mean Platelet Volume 8.1; Monocytes # (A) 0.4 k/uL (0-1.0); Monocytes % (A) 8 %; Neutrophils # (A) 2.7 k/uL (1.3-7.7); Neutrophils % (A) 53 %; Platelet Count 102 k/uL (150-450); RBC 4.76 m/uL (4.30-5.90); RDW 14.2 % (11.5-15.5); WBC 5.2 k/uL (3.8-10.6)
[2019-03-11 07:08] LABS: African American GFR (CKD) >90 (>60 ml/min/1.73 sqM); Anion Gap 9 mmol/L; Blood Urea Nitrogen 13 mg/dL (9-20); Calcium 9.3 mg/dL (8.4-10.2); Carbon Dioxide 24 mmol/L (22-30); Chloride 110 mmol/L (98-107); Glucose 95 mg/dL (74-99); Sodium 143 mmol/L (137-145)
[2019-03-11] MEDS ORDERED: SCOPOLAMINE 1.5MG/72HR PATCH TRANSDERM ONE (09:29)
[2019-03-11] MEDS ORDERED: DEXAMETHASONE SOD PHOSPHATE 10 MG/ML 1 ML VIAL IV ONE (09:29)
[2019-03-11] MEDS ORDERED: ONDANSETRON 4 MG/2 ML VIAL IVP ONE (09:29)
[2019-03-11] MEDS ORDERED: MIDAZOLAM 2 MG/2 ML VIAL IV PRN (09:29)
[2019-03-11] MEDS ORDERED: WATER FOR INJECTION IV SCH ×2 (09:29)
[2019-03-11] MEDS ORDERED: STERILE IV SCH ×2 (09:29)
[2019-03-11] MEDS ORDERED: HYDROmorphone 0.5 MG/0.5 ML SYRINGE IVP PRN (09:29)
[2019-03-11] MEDS ORDERED: PHENYLEPHRINE IV SCH ×2 (09:29)
[2019-03-11] MEDS ORDERED: LACTATED RINGERS 1,000 ML IV SCH (09:29)
[2019-03-11] MEDS ORDERED: IV FLUID CONTINUATION 900 ML IV ONE (09:30)
[2019-03-11] MEDS ORDERED: LABETALOL 5 MG/ML VIAL MDV ONE (09:39)
[2019-03-11] MEDS ORDERED: fentaNYL (PF) 50 MCG/ML 2 ML AMP ONE (09:39)
[2019-03-11] MEDS ORDERED: HEPARIN SODIUM,PORCINE 10,000 UNIT/ML 1 ML VIAL ONE (09:39)
[2019-03-11] MEDS ORDERED: PROTAMINE SULFATE 10 MG/ML 5 ML VIAL IV ONE (09:39)
[2019-03-11] MEDS ORDERED: PHENYLEPHRINE-0.9% NACL SYG 1 MG/10 ML SYRINGE ONE (09:39)
[2019-03-11] MEDS ORDERED: GLYCOPYRROLATE 0.2 MG/ML 2 ML VIAL ONE (09:39)
[2019-03-11] MEDS ORDERED: NEOSTIGMINE 1 MG/ML 10 ML VIAL ONE (09:39)
[2019-03-11] MEDS ORDERED: ROCURONIUM BROMIDE 10 MG/ML 10 ML VIAL IV ONE (09:39)
[2019-03-11] MEDS ORDERED: PROPOFOL 10 MG/ML 20 ML VIAL IV ONE (09:39)
[2019-03-11] MEDS ORDERED: SUCCINYLCHOLINE CHLORIDE 100 MG/5 ML SYR IV ONE (09:39)
[2019-03-11] MEDS ORDERED: ceFAZolin 1,000 MG VIAL ONE (09:39)
[2019-03-11] MEDS ORDERED: LIDOCAINE 1% INJ 10MG/ML (20 ML MDV) ONE (09:39)
[2019-03-11] MEDS ORDERED: ePHEDrine SULFATE/0.9% NACL/PF 50 MG/5 ML SYRINGE IV ONE (09:39)
[2019-03-11] MEDS ORDERED: MIDAZOLAM 2 MG/2 ML VIAL ONE (09:39)
[2019-03-11] MEDS ORDERED: PHENYLEPHRINE 40 MG in SODIUM CHLORIDE 0.9% 250 ML IV SCH (09:45)
[2019-03-11] MEDS ORDERED: LIDOCAINE 1% 20 ML VIAL (10MG/ML) FOR IV START INTRADERMA ONE (09:50)
--- NOTE | 2019-03-11 10:31 | P.ANPRN ---
Procedure Note - Anesthesia - Invasive Line Left Arterial Line Time Out Performed: Yes Date of Procedure: 03/11/19 Time of Procedure: 10:10 Location of Patient Procedure: PreOp Preparation: Sterile Prep, Sterile Dressing Arterial Line Location: Radial Ultrasound Used: Yes Needle Guage: 20 Narrative: After previous attempt by [employer], left forearm prepped and draped in sterile fashion. Under direct u/s visualization, 20 g arrow catheter advanced into left radial artery. Pulsatile blood flow obtained. Guidewire inserted and catheter advanced over guidewire. Line sutured in place. Pt tolerated well.
--- NOTE | 2019-03-11 10:46 | PN ---
PROGRESS NOTE DATE OF SERVICE: 03/11/2019 I had the pleasure of re-evaluating Gurmeet Elkins. The patient is lying down, 2 daughters are currently at the bedside and he denies new complaints. He continues to have left-sided numbness, but states the strength in his left lower extremity is improving and right side is asymptomatic. The patient is actually about to leave the medical floor for planned right carotid endarterectomy. The patients' daughter's help to clarify that the patient presented to [facility] last Sunday (1 week ago) and was subsequently seen by an outpatient neurologist the next day, who set him up for MRIs at an open unit, although these were scheduled to be several weeks out and as a result, family decided to bring the patient to the hospital. CURRENT MEDICATIONS: Tylenol, Xanax, aspirin 325 mg q. day, Lipitor, Tums, Catapres, Plavix 75 mg q. day, heparin subcu, [place], Toprol-XL, Procardia XL, Protonix, Flomax, and Restoril. PHYSICAL EXAM: Upon arrival in the patient's room, he was sitting in a bedside chair. He is a fair historian, overweight and appears of stated age. The patient's 2 daughters are at the bedside. VITAL SIGNS: Blood pressure is 133/70 with a pulse of 68, respirations 16, temperature 98.1. Skin, extremities are with mild arthritic changes are noted in the hands. Higher cortical function. Mental status the patient was alert, oriented to time, place, and person. There is no aphasia or dysarthria. Claims to the 12 are intact. Except for diminution to pinprick/light touch on the left side of the face as compared to the right and reduced hearing q.d. to finger rub on the left. Motor examination there is no pronator drift. Normal bulk and tone is noted in all major muscles with omentum showed upper strength is 5/5 except that the left lower extremity where strength was 4/5 at the iliopsoas and hamstrings. SENSORY: Patient reports diminution to pinprick and light touch involving the left lower extremity as compared to the right. Upper extremities were symmetric. REFLEXES: Right side was first addressed 1/1, patella 2/2, ankle 0/0. Plantar response extensor on the left and flexor on the right. COORDINATION: There is dysmetria with left igel-iy-kjdm movements. Finger-to- nose are intact, bilaterally. DIAGNOSTIC TESTING: The patient had an MRI of the brain completed without contrast, which demonstrated multiple acute cortical and subcortical ischemic areas, more prominent on the right with the largest area of in the right parietal-occipital region. These appear to be confined to the anterior circulation. MRI of the cervical spine is not available for my review and unclear if this was completed, as the patient is quite claustrophobic and required multiple attempts even to get the MRI of the brain done. CBC demonstrated white blood cell count of 5.2, hemoglobin of 13.9, platelet count 102. IMPRESSION: 1. Multiple, bilateral (right greater than left) cortical/subcortical infarcts. The etiology of the right-sided events may be at least in part related to the documented severe right carotid stenosis, although with evidence of bilateral events, cardioembolic phenomenon should be excluded. The patient's risk factors for stroke include hypertension, hyperlipidemia, obesity, tobacco abuse, carotid occlusive disease, and male sex. The patient was not on aspirin or other anti- platelet/anticoagulant medication at the time of this event. 2. Greater than 80% stenosis of the right internal carotid artery per CTA without significant stenosis on the left, the patient is going for right carotid endarterectomy later today. 3. Thrombocytopenia. 4. Medical problems including long-standing left ear deafness and chronic obstructive pulmonary disease. RECOMMENDATION: 1. Cardiology consultation for possible transesophageal echocardiogram/possible loop recorder placement. To date, the patient has apparently demonstrated no cardiac arrhythmias. 2. Will attempt to obtain MRI of the cervical spine if this was not completed. 3. Risk factor modification as the patient has been maintained on Plavix/aspirin and Lipitor. 4. The patient is going for a right carotid endarterectomy today. 5. Would strongly recommend the patient quit smoking. 6. Physical therapy evaluation and treatment. 7. Will follow with you. MMODL / IJN: [id number] / MARLENI
[2019-03-11] MEDS ORDERED: BUPIVACAINE (PF) 0.5% 30 ML VIAL SQ ONE ×2 (11:10)
[2019-03-11] MEDS ORDERED: LACTATED RINGERS 1,000 ML IV ONE (13:00)
--- NOTE | 2019-03-11 13:42 | P.OP ---
Description of Procedure: Date of Procedure: 03/11/2018 Preoperative Diagnosis: Symptomatic right internal carotid artery stenosis, soft hemorrhagic plaque Postoperative Diagnosis: Same Procedure(s) Performed: Right carotid endarterectomy with patch angioplasty Anesthesia: REAL Surgeon: Kimberlyn Sandoval DO Estimated Blood Loss (ml): 75ml IV Fluids: 700cc crystalloid Urine Output: 135cc Specimen: Right carotid plaque Condition: stable Disposition: PACU Indications for Procedure: The patient is a 59-year-old male with hypertension, hyperlipidemia, COPD and tobacco abuse who recently was admitted after having left lower extremity numbness up into his thorax and sparing of his upper extremities. He also has facial numbness. He was seen at an outside facility and was being set up for an outpatient MRI. At the time of admission to this hospital, he states the numbness is continued, and that his leg feels heavy and weak. He underwent an carotid duplex which revealed high-grade right internal carotid artery stenosis with a ratio of 7.8 and a velocity of 573. He was seen in evaluation by the neurologist, Dr Russo, who felt that this could be some component of a symptomatic right internal carotid artery due to his high-grade stenosis. An MRI was ordered showing cortical lesions but also areas of cortical lesions on the left as well as an occipital lesion. Discussion was had with the neurologist again who felt that the areas of infarct in the right cortex could be due to the carotid itself. He felt that it was safe to proceed with a carotid endarterectomy given the findings of the MRI. Risks and benefits were discussed with the patient and his family. They agreed and were willing to proceed. During dissection, the vagus nerve was found to be laying in the anterior position, it was kept free from dissection along with the hypoglossal nerve which was low. The plaque was essentially very focal, near occlusive and soft with areas of intraplaque hemorrhage. Description of Procedure: After written informed consent was obtained the patient all risks benefits and competitions were described the patient is brought to the operative suite and laid in a supine position. The area of the neck was prepped and draped in usual sterile fashion after appropriate anesthetic was performed per the anesthesiologist. A timeout was performed in normal fashion antibiotics were administered prior to incision. An oblique incision was then created just anterior to the sternocleidomastoid musculature with a 10 blade scalpel and dissection was carried down to the carotid sheath. The carotid sheath was then entered. The vagus nerve was found to be an anterior positioning and left free from dissection. Dissection was carried on the cephalad direction and the facial vein was identified. It was ligated and divided. The common carotid, internal carotid, external carotid and superior thyroid arteries were located and dissected free in a meticulous fashion circumferentially and controlled with vessel loops. Attention was turned to locating the hypoglossal nerve which was also spared. Once controlled patient was administered heparin and followed with ACTs for appropriate heparinization. Once ACT was above 200 the proximal and distal aspects of the dissection were then controlled with vascular clamps. Arteriotomy was then c reated with 11 blade scalpel and extended with Maher Hayden scissors. Utilizing pressure tubing stump pressures were obtained and were 54mmHg. No shunt was required and endarterectomy was then performed with a Sheridan elevator. The plaque was then feathered at the distal aspect and the internal carotid artery and removed. The area was copiously irrigated with heparinized saline and all free debris was removed. A 0.8 x 8 cm bovine pericardial patch was then chosen and patch angioplasty was performed with 6-0 Prolene suture in a running fashion. Prior to last sutures being placed the inflow was released flushing any free debris out of the patch. This was reclamped and the internal carotid artery was released revealing good brisk flow and was once again reclamped. The external carotid and superior thyroid artery were then released followed by the common carotid artery to allow any free debris to be flushed into the external system. Internal carotid artery control was then released. Good pulsatile flow was noted through the patch and a Doppler was utilized demonstrating good brisk flow into the internal, external carotid arteries without any signs of obstruction. Hemostasis was then assured with Surgicel. A 10-Jordanian ASHLEY drain was then placed in normal fashion and secured with 3-0 silk suture. The incision was then closed in a multilayer fashion after hemostasis was assured. The skin was then cleansed and dressings were placed. Patient tolerated the procedure well and was following commands and moving all extremities, there was some residual weakness of the left lower extremity as previous. Patient was then sent to PACU for recovery.
[2019-03-11] MEDS ORDERED: BENZOCAINE/MENTHOL LOZENG 1 EACH LOZENGE MUCOUS MEM PRN (14:03)
[2019-03-11] MEDS ORDERED: TRIMETHOBENZAMIDE 100 MG/ML 2 ML VIAL IM PRN (14:03)
[2019-03-11] MEDS ORDERED: MORPHINE SULFATE 2 MG/ML SYRINGE IVP PRN (14:03)
[2019-03-11] MEDS ORDERED: MAG HYDROX/AL HYDROX/SIMETH 30 ML CUP PO PRN (14:03)
[2019-03-11] MEDS ORDERED: ACETAMINOPHEN TAB 325 MG TAB PO PRN (14:03)
[2019-03-11 14:17] LABS: Hemoglobin A1C 5.5 % (4.0-6.0)
[2019-03-11 14:56] LABS: Glucose,Whole Blood 125 mg/dL (75-99)
[2019-03-11] MEDS: NICOTINE 21MG/24HR PATCH TRANSDERM SCH ×2 (15:27→16:19)
[2019-03-11] MEDS: LACTATED RINGERS 1,000 ML IV SCH (15:28)
[2019-03-11] MEDS: NITROGLYCERIN-D5W PMX 50 MG in DEXTROSE/WATER 1 250ML.BAG IV SCH (15:29)
--- NOTE | 2019-03-11 17:25 | P.PN ---
Subjective Progress Note Date: 03/11/19 Principal diagnosis: Acute CVA with left-sided numbness and weakness. Patient is a 59-year-old male with a known history of COPD, , hypertension, BPH and left ear deafness was admitted to the hospital due to significant weakness or numbness of the left lower extremity/foot. Patient had CT angiogram of the neck showed significant right internal carotid artery stenosis. MRA of the head and cervical spine could not be done due to significant claustrophobia. 2-D echocardiogram showed ejection fraction 50-60% with no significant valvular abnormalities. 03/11/2019 Patient underwent a right carotid endarterectomy with patch angioplasty was done today. Patient is still having some left foot numbness. No complaints of chest pain or shortness of breath. No nausea vomiting or abdominal pain. Tolerating oral diet. No dysuria or hematuria. No headache or dizziness or lightheadedness. No fever no chills. Cardiology to be consulted for GRACIELA to rule out any cardiac embolic. All other review of systems negative except the above Active Medications Generic Name Dose Route Start Last Admin Trade Name Freq PRN Reason Stop Dose Admin Acetaminophen 650 mg 03/11/19 14:03 Tylenol Tab PO Q4HR PRN Pain Hydrocodone Bitart/Acetaminophen 1 each 03/09/19 13:33 Onley 5-325 PO Q6HR PRN MODERATE TO SEVERE Pain Al Hydroxide/Mg Hydroxide 30 ml 03/11/19 14:03 Maalox PO Q6HR PRN Indigestion Alprazolam 0.25 mg 03/09/19 13:33 Xanax PO TID PRN Anxiety Aspirin 325 mg 03/09/19 09:00 03/11/19 06:01 Aspirin PO 325 mg DAILY JAM Administration Atorvastatin Calcium 80 mg 03/08/19 21:00 03/10/19 20:16 Lipitor PO 80 mg HS JAM Administration Benzocaine/Menthol 1 each 03/11/19 14:03 Cepacol Lozenge MUCOUS MEM Q2HR PRN Sore Throat Calcium Carbonate/Glycine 1,000 mg 03/09/19 11:42 03/09/19 12:21 Tums PO 1,000 mg TID PRN Administration Heartburn Clonidine 0.2 mg 03/09/19 13:45 03/11/19 06:01 Catapres PO 0.2 mg DAILY JAM Administration Clopidogrel Bisulfate 75 mg 03/09/19 15:00 03/11/19 06:01 Plavix PO 75 mg DAILY JAM Administration Heparin Sodium (Porcine) 5,000 unit 03/09/19 13:45 03/11/19 05:57 Heparin SQ Not Given Q12HR JAM Hydromorphone HCl 0.5 mg 03/11/19 09:29 Dilaudid IVP 03/12/19 09:30 Q5M PRN Pain Control Sodium Chloride 1,000 mls @ 20 mls/hr 03/08/19 19:00 03/10/19 20:06 Saline 0.9% IV Not Given .Q24H JAM Nitroglycerin/Dextrose 50 mg/ 250 mls @ 6 mls/hr 03/11/19 09:29 03/11/19 15:29 IV Solution IV Not Given .Q24H JAM Protocol 20 MCG/MIN Phenylephrine HCl 40 mg/ 254 mls @ 0 mls/hr 03/11/19 09:45 Sodium Chloride IV .Q0M JAM Protocol Cefazolin Sodium 3 gm/ Sodium 100 mls @ 200 mls/hr 03/11/19 19:00 Chloride IVPB 03/12/19 03:29 Q8H JAM Lactated Ringer's 1,000 mls @ 75 mls/hr 03/11/19 14:15 03/11/19 15:28 Lactated Ringers IV 75 mls/hr .[id number] JAM Administration Metoprolol Succinate 100 mg 03/09/19 09:00 03/11/19 06:01 Toprol Xl PO 100 mg DAILY JAM Administration Midazolam HCl 2 mg 03/11/19 09:29 Versed IV 03/12/19 09:30 ONCE PRN Anxiety Morphine Sulfate 2 mg 03/11/19 14:03 Morphine Sulfate (Inj) IVP Q4H PRN Pain Scale 6 to 7 Nicotine 1 patch 03/08/19 22:00 03/11/19 15:27 Habitrol 21mg/24hr Patch TRANSDERM Not Given DAILY [facility] Nifedipine 60 mg 03/09/19 09:00 03/11/19 06:01 Procardia Xl PO 60 mg DAILY JAM Administration Pantoprazole Sodium 40 mg 03/09/19 11:45 03/11/19 06:01 Protonix PO 40 mg [id number] JAM Administration Tamsulosin HCl 0.4 mg 03/09/19 09:00 03/11/19 05:57 Flomax PO Not Given DAILY JAM Temazepam 15 mg 03/09/19 13:33 Restoril PO HS PRN Insomnia Trimethobenzamide HCl 200 mg 03/11/19 14:03 Tigan IM Q4HR PRN Nausea And Vomiting Objective - Vital Signs Vital signs: Vital Signs Temp 97.1 F L 03/11/19 13:07 Pulse 65 03/11/19 13:52 Resp 18 03/11/19 13:52 BP 147/75 03/11/19 13:52 Pulse Ox 93 L 03/11/19 13:52 Intake & Output 03/10/19 03/11/19 03/11/19 18:59 06:59 18:59 Intake Total 480 1200 Output Total 100 210 Balance 480 -100 990 Weight 141.1 kg Intake: IV 1200 Oral 480 Output: Urine 100 135 Estimated Blood Loss 75 Other: Voiding Method Toilet Toilet Toilet # Voids 1 1 - Exam PHYSICAL EXAMINATION: Patient is lying in the bed comfortably, no acute distress, awake alert and oriented.. HEENT: Normocephalic. Neck is supple. Pupils reactive. Nostrils clear. Oral cavity is moist. Ears reveal no drainage. Neck reveals no JVD, carotid bruits, or thyromegaly. Right carotid surgical site intact. CHEST EXAMINATION: Trachea is central. Symmetrical expansion. Lung dodson clear to auscultation and percussion. CARDIAC: Normal S1, S2 with no gallops. No murmurs ABDOMEN: Soft. Bowel sounds normal. No organomegaly. No abdominal bruits. Extremities: reveal no edema. No clubbing or cyanosis Neurologically awake, alert, oriented x3 with well-coordinated movements. Left lower extremity numbness and some weakness present. Skin: No rash or skin lesions. Psychiatric: Coperative. Nonsuicidal Musculoskeletal: No joint swelling or deformity. Normal range of motion. - Labs CBC & Chem 7: 03/11/19 06:34 03/11/19 06:34 Labs: Abnormal Lab Results - Last 24 Hours (Table) 03/11/19 03/11/19 Range/Units 06:34 06:34 Plt Count 102 L (150-450) k/uL Chloride 110 H (98-107) mmol/L Assessment and Plan Assessment: Acute numbness and weakness of the left side due to acute/subacute CVA Right-sided critical carotid stenosis of the internal carotid artery. Status post endarterectomy POD 0 Obesity BMI 42.2 Chronic thrombocytopenia. Etiology unknown. Platelet count is stable. Hypertension Hyperlipidemia Hypertension triglyceride anemia COPD History of carpal tunnel syndrome Ongoing nicotine addiction DVT prophylaxis Plan: Patient be continued on aspirin, Plavix and statins. MRI to be done. Neurology is following. Patient is status post right carotid endarterectomy. Otherwise continue the current management and further recommendations based on the clinical course. Time with Patient: Greater than 30
[2019-03-11] MEDS: ceFAZolin 3 GM in SODIUM CHLORIDE 0.9% 100 ML IVPB SCH (18:33)
[2019-03-11] MEDS: ATORVASTATIN 80 MG TAB PO SCH (20:21)
[2019-03-12] MEDS: ceFAZolin 3 GM in SODIUM CHLORIDE 0.9% 100 ML IVPB SCH (03:06)
[2019-03-12 04:30] LABS: Basophils % (A) 0 %; Eosinophils % (A) 1 %; HCT 37.2 % (39.0-53.0); HGB 12.8 gm/dL (13.0-17.5); Lymphocytes # (A) 1.4 k/uL (1.0-4.8); Lymphocytes % (A) 23 %; MCH 30.2 pg (25.0-35.0); MCHC 34.3 g/dL (31.0-37.0); MCV 88.1 fL (80.0-100.0); Mean Platelet Volume 8.9; Monocytes # (A) 0.4 k/uL (0-1.0); Monocytes % (A) 6 %; Neutrophils # (A) 4.2 k/uL (1.3-7.7); Neutrophils % (A) 69 %; RBC 4.23 m/uL (4.30-5.90); RDW 14.7 % (11.5-15.5); WBC 6.1 k/uL (3.8-10.6)
[2019-03-12 04:33] LABS: African American GFR (CKD) >90 (>60 ml/min/1.73 sqM); Anion Gap 9 mmol/L; Blood Urea Nitrogen 16 mg/dL (9-20); Calcium 8.8 mg/dL (8.4-10.2); Carbon Dioxide 22 mmol/L (22-30); Chloride 108 mmol/L (98-107); Glucose 104 mg/dL (74-99); Sodium 139 mmol/L (137-145)
[2019-03-12 05:58] LABS: Anisocytosis (M) Present
[2019-03-12 06:00] LABS: Platelet Count 80 k/uL (150-450)
[2019-03-12] MEDS: PANTOPRAZOLE 40 MG TABLET PO SCH (06:53)
[2019-03-12] MEDS ORDERED: LORazepam 2 MG/ML INJ IV PRN (08:45)
[2019-03-12] MEDS ORDERED: ASPIRIN 81 MG PO SCH (09:00)
[2019-03-12] MEDS: ASPIRIN 81 MG PO SCH (09:14)
[2019-03-12] MEDS: CLOPIDOGREL 75 MG TAB PO SCH (09:14)
[2019-03-12] MEDS: HEPARIN SODIUM,PORCINE 5,000 UNIT/ML 1 ML VIAL SQ SCH ×2 (09:14→21:22)
[2019-03-12] MEDS: LOSARTAN 50 MG TAB PO SCH ×2 (09:15→21:22)
[2019-03-12] MEDS: NICOTINE 21MG/24HR PATCH TRANSDERM SCH (09:15)
[2019-03-12] MEDS: METOPROLOL SUCCINATE (ER) 100 MG TAB.ER.24H PO SCH (09:15)
[2019-03-12] MEDS: TAMSULOSIN 0.4 MG CAP.ER.24H PO SCH (09:16)
--- NOTE | 2019-03-12 09:23 | PN ---
PROGRESS NOTE DATE OF SERVICE: 03/12/2019. I evaluated the patient in the ICU and he underwent right carotid endarterectomy yesterday. He states the procedure went well and denies new complaints this morning. In particular, he denies headache, feels the left-sided numbness is "fading" and the left lower extremity strength is improving. CURRENT MEDICATIONS: Tylenol, Maalox, Xanax, aspirin 162 mg q. day, Lipitor, Cepacol, Tums, Plavix 75 mg q. day, heparin subcu, [place], Dilaudid, Cozaar, Toprol, nicotine patch, Protonix, Flomax, Restoril. PHYSICAL EXAM: On physical exam, the patient is currently sitting in a bedside chair in the ICU. He is a fair historian, overweight and appears of stated age. No family members at the bedside. VITAL SIGNS: Blood pressure is 109/89 with pulse of 61, respiratory rate 11, temperature 98. HIGHER CORTICAL FUNCTION: MENTAL STATUS: Patient was alert, oriented to time, place, and person. There was no aphasia or dysarthria. CRANIAL CRANIAL NERVES: II through XII are intact except for diminution to pinprick/light touch in left side of face as compared to the right and reduced hearing acuity on the left. MOTOR EXAMINATION: No pronator drift. Normal bulk and tone is noted with no involuntary movements present. Strength is 5/5 except at the left iliopsoas/hamstrings, which are 4+ or 5. SENSORY: Patient reports diminution to pinprick and light touch involving the left lower extremity as compared to the right. Upper extremities were symmetric. Plantar responses are flexor on the right and extensor on the left. COORDINATION: There is dysmetria with left [id number] movements. These are intact on the right and [id number] are intact bilaterally. DIAGNOSTIC TESTING: Lab work demonstrates a white blood count of 6.1, hemoglobin 12.8, platelet count 80. Sodium 139, potassium 4.0, BUN 16 with a creatinine 0.77. Hemoglobin A1c 5.5. IMPRESSION: 1. Multiple, bilateral (right greater than left) cortical/subcortical infarcts. The etiology of the right-sided events may be at least in part related to the documented severe right carotid stenosis, although with evidence of bilateral events, cardioembolic phenomenon should be excluded. The patient's risk factors for stroke include hypertension, hyperlipidemia, obesity, tobacco abuse, carotid occlusive disease, and male sex. The patient was not on aspirin or other anti- platelet/anticoagulant medication at time of this event. 2. Greater than 80% stenosis of the right internal carotid artery per CTA without significant stenosis on the left, the patient is status post right carotid endarterectomy on 03/11/2019. 3. Thrombocytopenia. 4. Long-standing left ear deafness. RECOMMENDATIONS: 1. I reassured the patient his neurologic examination is stable. 2. Risk factor modification and the patient is currently maintained on Plavix/aspirin and Lipitor. 3. I had the opportunity to speak with the cardiology service regarding the presence of bilateral infarcts and they plan to pursue echocardiogram with bubble study and possible loop recorder placement. 4. We will complete MRI of the cervical spine, this was discussed with nursing staff, the patient will require premedication. 5. The patient was strongly recommended to quit smoking. 6. Increase activity as tolerated, physical therapy evaluation and treatment. 7. Will follow with you. SUMAN / EDISON: [id number] /
--- NOTE | 2019-03-12 10:33 | P.CRDCN ---
History of Present Illness History of present illness: This is Lenka Laguna PA-C dictating a consult on this patient The patient was interviewed and examined by me IMPRESSION / ASSESSMENT: History of recent CVA, evidence of possible embolic strokes on MRI Hypertension R Carotid stenosis status post carotid endarterectomy Dyslipidemia Increased BMI PLAN: Discontinue clonidine and nifedipine, start losartan 50 mg twice a day Discontinue Crestor, Start atorvastatin 80 mg, goal LDL less than 50 Reduce aspirin dose to 81 mg daily Order limited echo with bubble Consider loop recorder to assess for atrial fibrillation Check TSH HPI Patient is a 59-year-old male with past medical history of hypertension, dyslipidemia, and carotid stenosis who is postop day 1 from a R carotid endarterectomy. Patient has had progressive left-sided numbness and weakness for the past 2 weeks. He was seen in an outside hospital last week and under went a workup with a CT and discharged to follow-up outpatient with neurology. He was scheduled for an MRI was not able to get an appointment until 5 weeks out. He continued to have symptoms and difficulty walking so he came to our emergency department. He denied any chest pain or shortness of breath at that time. Brain MRI showed multiple cortical and subcortical ischemic changes. He was found to have severe stenosis right internal carotid artery and underwent carotid endarterectomy. This weakness is improving. He denies any chest pain, palpitations, shortness of breath with exertion, orthopnea, PND, or syncope. He does admit to some intermittent lower extremity edema. Patient is nondiabetic ROS: Admits to arthritis pain No fevers, chills or rigors, no cough, phlegm or expectoration, no nausea, vomiting or diarrhea, no hematuria, dysuria, no skin lesions. EXAMINATION: Temperature 98.4F, pulse 57, respirations 11, blood pressure 132/75, O2 sat 97% on room air Patient seen and examined sitting comfortably in the chair, in no acute distress Dressing on the right side of the neck clean dry and intact Lungs clear to auscultation bilaterally Heart regular rate and rhythm, no murmurs appreciated No lower extremity edema REVIEW OF LABS, ECG & MEDICAL DATA Brain MRI shows multiple cortical and subcortical hyperintensities is bilaterally Echocardiogram showed normal LV size, EF 55-60%, moderate concentric LVH CT angio neck showed severe stenosis of the right internal carotid artery, no evidence of stenosis in the left internal carotid artery Chest x-ray shows no active cardiopulmonary disease EKG showed normal sinus rhythm Hemoglobin 12.8, WBC 6.1, potassium 4.0, creatinine 0.77, BUN 16, total cholesterol 169, triglyceride 219, LDL 94, HDL 31 Past Medical History Past Medical History: COPD, Hyperlipidemia, Hypertension History of Any Multi-Drug Resistant Organisms: None Reported Past Surgical History: No Surgical Hx Reported Additional Past Surgical History / Comment(s): carpal tunnel bilat hands with release, RT knee miniscus repair. Past Anesthesia/Blood Transfusion Reactions: No Reported Reaction Past Psychological History: No Psychological Hx Reported Smoking Status: Current every day smoker Past Alcohol Use History: None Reported Past Drug Use History: None Reported Medications and Allergies Home Medications Medication Instructions Recorded Confirmed Type Ibuprofen [Motrin] 800 mg PO TID PRN 03/08/19 03/08/19 History Metoprolol Succinate (ER) [Toprol 100 mg PO DAILY 03/08/19 03/08/19 History Xl] NIFEdipine [NIFEdipine ER] 60 mg PO DAILY 03/08/19 03/08/19 History Rosuvastatin Calcium [Crestor] 20 mg PO HS 03/08/19 03/08/19 History Tamsulosin HCl [Flomax] 0.4 mg PO DAILY 03/08/19 03/08/19 History cloNIDine HCL [Catapres] 0.2 mg PO DAILY 03/08/19 03/08/19 History Allergies Allergy/AdvReac Type Severity Reaction Status Date / Time No Known Allergies Allergy Verified 03/08/19 18:14 Physical Exam Vitals: Vital Signs Temp Pulse Pulse Resp BP BP BP 03/12/19 08:00 98.4 F 57 L 11 L 132/75 03/12/19 07:00 61 11 L 03/12/19 06:00 61 16 03/12/19 05:00 57 L 11 L 03/12/19 04:00 98 F 56 L 16 03/12/19 03:00 53 L 13 03/12/19 02:00 57 L 16 03/12/19 01:00 55 L 17 03/12/19 00:07 53 L 17 03/12/19 00:00 98.4 F 56 L 17 03/11/19 23:00 60 26 H 03/11/19 22:00 53 L 14 03/11/19 21:00 60 16 03/11/19 20:00 98.3 F 54 L 13 03/11/19 19:00 60 15 03/11/19 18:00 47 L 12 03/11/19 17:00 63 25 H 03/11/19 16:30 59 L 14 03/11/19 16:15 61 25 H 132/75 03/11/19 16:00 56 L 14 132/75 03/11/19 15:45 60 13 132/75 03/11/19 15:30 97.8 F 57 L 19 132/75 03/11/19 15:15 55 L 13 132/75 03/11/19 14:50 64 18 03/11/19 14:22 61 18 145/62 141/78 03/11/19 14:07 63 18 143/62 140/76 03/11/19 13:52 65 18 149/62 147/75 03/11/19 13:37 66 18 145/61 147/77 03/11/19 13:22 69 18 143/61 143/76 03/11/19 13:07 97.1 F L 72 14 139/60 Pulse Ox 03/12/19 08:00 97 03/12/19 07:00 93 L 03/12/19 06:00 94 L 03/12/19 05:00 93 L 03/12/19 04:00 94 L 03/12/19 03:00 93 L 03/12/19 02:00 92 L 03/12/19 01:00 93 L 03/12/19 00:07 95 03/12/19 00:00 93 L 03/11/19 23:00 93 L 03/11/19 22:00 95 03/11/19 21:00 94 L 03/11/19 20:00 92 L 03/11/19 19:00 93 L 03/11/19 18:00 89 L 03/11/19 17:00 93 L 03/11/19 16:30 93 L 03/11/19 16:15 94 L 03/11/19 16:00 91 L 03/11/19 15:45 92 L 03/11/19 15:30 90 L 03/11/19 15:15 90 L 03/11/19 14:50 03/11/19 14:22 95 03/11/19 14:07 94 L 03/11/19 13:52 93 L 03/11/19 13:37 92 L 03/11/19 13:22 96 03/11/19 13:07 97 Intake and Output 03/11/19 03/12/19 03/12/19 22:59 06:59 14:59 Intake Total 950 775 Output Total 525 620 Balance 425 155 Intake: IV 600 675 Lactated Ringers 1,000 ml 600 675 @ 75 mls/hr IV .[id number] [facility] Rx#:[id number] Intake, IV Titration 100 Amount ceFAZolin 3 gm In Sodium 100 Chloride 0.9% 100 ml @ 200 mls/hr IVPB Q8H [facility] Rx#:[id number] Oral 350 Output: Drainage 50 30 Right Neck 50 30 Urine 475 590 Other: Voiding Method Indwelling Catheter Indwelling Catheter Weight 149.5 kg ABP, PAP, CO, CI - Last 8 Hours Arterial Blood Pressure 109/69 Arterial Blood Pressure 99/79 Arterial Blood Pressure 137/61 Arterial Blood Pressure 105/54 Arterial Blood Pressure 118/53 Results 03/12/19 04:15 03/12/19 04:15 CBC 03/12/19 Range/Units 04:15 WBC 6.1 (3.8-10.6) k/uL RBC 4.23 L (4.30-5.90) m/uL Hgb 12.8 L (13.0-17.5) gm/dL Hct 37.2 L (39.0-53.0) % Plt Count 80 L (150-450) k/uL Comprehensive Metabolic Panel 03/12/19 Range/Units 04:15 Sodium 139 (137-145) mmol/L Potassium 4.0 (3.5-5.1) mmol/L Chloride 108 H (98-107) mmol/L Carbon Dioxide 22 (22-30) mmol/L BUN 16 (9-20) mg/dL Creatinine 0.77 (0.66-1.25) mg/dL Glucose 104 H (74-99) mg/dL Calcium 8.8 (8.4-10.2) mg/dL Current Medications Generic Name Dose Route Start Last Admin Trade Name Freq PRN Reason Stop Dose Admin Acetaminophen 650 mg 03/11/19 14:03 Tylenol Tab PO Q4HR PRN Pain Hydrocodone Bitart/Acetaminophen 1 each 03/09/19 13:33 03/11/19 16:17 [place] 5-325 PO 1 each Q6HR PRN Administration MODERATE TO SEVERE Pain Al Hydroxide/Mg Hydroxide 30 ml 03/11/19 14:03 Maalox PO Q6HR PRN Indigestion Alprazolam 0.25 mg 03/09/19 13:33 Xanax PO TID PRN Anxiety Aspirin 162 mg 03/12/19 09:00 03/12/19 09:14 Aspirin PO 162 mg DAILY JAM Administration Atorvastatin Calcium 80 mg 03/08/19 21:00 03/11/19 20:21 Lipitor PO 80 mg HS JAM Administration Benzocaine/Menthol 1 each 03/11/19 14:03 Cepacol Lozenge MUCOUS MEM Q2HR PRN Sore Throat Calcium Carbonate/Glycine 1,000 mg 03/09/19 11:42 03/09/19 12:21 Tums PO 1,000 mg TID PRN Administration Heartburn Clopidogrel Bisulfate 75 mg 03/09/19 15:00 03/12/19 09:14 Plavix PO 75 mg DAILY JAM Administration Heparin Sodium (Porcine) 5,000 unit 03/09/19 13:45 03/12/19 09:14 Heparin SQ 5,000 unit Q12HR JAM Administration Nitroglycerin/Dextrose 50 mg/ 250 mls @ 6 mls/hr 03/11/19 09:29 03/11/19 15:29 IV Solution IV Not Given .Q24H JAM Protocol 20 MCG/MIN Phenylephrine HCl 40 mg/ 254 mls @ 0 mls/hr 03/11/19 09:45 Sodium Chloride IV .Q0M JAM Protocol Lactated Ringer's 1,000 mls @ 75 mls/hr 03/11/19 14:15 03/11/19 15:28 Lactated Ringers IV 75 mls/hr .[id number] JAM Administration Lorazepam 1 mg 03/12/19 08:45 Ativan IV 03/12/19 12:00 Q2H PRN Anxiety Losartan Potassium 50 mg 03/12/19 09:00 03/12/19 09:15 Cozaar PO 50 mg BID JAM Administration Metoprolol Succinate 100 mg 03/09/19 09:00 03/12/19 09:15 Toprol Xl PO 100 mg DAILY JAM Administration Morphine Sulfate 2 mg 03/11/19 14:03 Morphine Sulfate (Inj) IVP Q4H PRN Pain Scale 6 to 7 Nicotine 1 patch 03/08/19 22:00 03/12/19 09:15 Habitrol 21mg/24hr Patch TRANSDERM 1 patch DAILY JAM Administration Pantoprazole Sodium 40 mg 03/09/19 11:45 03/12/19 06:53 Protonix PO 40 mg [id number] JAM Administration Tamsulosin HCl 0.4 mg 03/09/19 09:00 03/12/19 09:16 Flomax PO 0.4 mg DAILY JAM Administration Temazepam 15 mg 03/09/19 13:33 Restoril PO HS PRN Insomnia Trimethobenzamide HCl 200 mg 03/11/19 14:03 Tigan IM Q4HR PRN Nausea And Vomiting Intake and Output 03/11/19 03/12/19 03/12/19 22:59 06:59 14:59 Intake Total 950 775 Output Total 525 620 Balance 425 155 Intake: IV 600 675 Lactated Ringers 1,000 ml 600 675 @ 75 mls/hr IV .[id number] [facility] Rx#:[id number] Intake, IV Titration 100 Amount ceFAZolin 3 gm In Sodium 100 Chloride 0.9% 100 ml @ 200 mls/hr IVPB Q8H [facility] Rx#:[id number] Oral 350 Output: Drainage 50 30 Right Neck 50 30 Urine 475 590 Other: Voiding Method Indwelling Catheter Indwelling Catheter Weight 149.5 kg 03/12/19 04:15 03/12/19 04:15
[2019-03-12] MEDS: LACTATED RINGERS 1,000 ML IV SCH ×2 (10:37→17:26)
[2019-03-12] MEDS: NITROGLYCERIN-D5W PMX 50 MG in DEXTROSE/WATER 1 250ML.BAG IV SCH (10:37)
--- NOTE | 2019-03-12 12:26 | ECHOF ---
Referral Reason:limited exam, bubble study MEASUREMENTS -------- HEIGHT: 180.3 cm WEIGHT: 149.2 kg BP: FINDINGS -------- Sinus rhythm. Limited Study Contrast study was performed with 1 iv injection of 8 ccs of agitated normal saline at rest. Interatrial and interventricular septum intact. CONCLUSIONS -------- 1. Sinus rhythm. 2. Limited Study 3. Contrast study was performed with 1 iv injection of 8 ccs of agitated normal saline at rest. 4. Interatrial and interventricular septum intact. WEIGHTS AND MEASURES INSPECTOR: Joseline Villarreal RDCS
[2019-03-12] MEDS: LORazepam 2 MG/ML INJ IV PRN ×2 (15:21→16:40)
--- NOTE | 2019-03-12 17:18 | MR ---
EXAMINATION TYPE: MR cervical spine wo/w con DATE OF EXAM: 03/12/2019 COMPARISON: None HISTORY: L sided numbness/cva TECHNIQUE: Multiplanar, multisequence images of the cervical spine were acquired utilizing 15 mL intravenous Sher avist gadolinium contrast. Diffusion weighted imaging was performed. Cervical vertebra have normal alignment. Disc spaces are fairly normal. There is mild posterior cervi dana disc herniation at C4-5. Cervical spinal cord has normal signal pattern. There is no edema. There is developmentally large spinal canal. Spinal canal measures 9.5 mm at C4-5. Brainstem is intact. Th ere is no bony destructive process. There is no evidence of cervical paraspinal mass. There are small posterior disc bulging at C5-6 centrally and towards the right side. There is no pathologic enhancem ent. IMPRESSION: Disc bulging and herniation posteriorly at C4-5 and C5-6. No spinal stenosis. No fracture.
--- NOTE | 2019-03-12 19:06 | P.PN ---
Subjective Progress Note Date: 03/12/19 Patient seen and examined. No issues overnight. Still with some numbness in his left leg, although states he feels it is improving. Objective - Vital Signs Vital signs: Vital Signs Temp 98.4 F 03/12/19 08:00 Pulse 55 L 03/12/19 14:00 Resp 13 03/12/19 14:00 BP 138/57 03/12/19 13:00 Pulse Ox 96 03/12/19 14:00 Intake & Output 03/11/19 03/12/19 03/12/19 18:59 06:59 18:59 Intake Total 1975 1075 525 Output Total 820 835 650 Balance 1155 240 -125 Weight 149.5 kg Intake: IV 1625 975 525 Lactated Ringers 1,000 ml 300 975 525 @ 75 mls/hr IV .[id number] [facility] Rx#:[id number] Intake, IV Titration 100 Amount ceFAZolin 3 gm In Sodium 100 Chloride 0.9% 100 ml @ 200 mls/hr IVPB Q8H [facility] Rx#:[id number] Oral 350 Output: Drainage 50 30 Right Neck 50 30 Urine 695 805 650 Estimated Blood Loss 75 Other: Voiding Method Indwelling Catheter Indwelling Catheter Urinal # Voids 1 ABP, PAP, CO, CI - Last Documented Arterial Blood Pressure 130/62 - Exam No acute distress, in chair comfortably Neck incision clean, dry and intact. No hematoma. Miniamal SS drainage in ASHLEY (~50cc since surg) No respiratory distress. Heart regular rate and rhythm Abdomen soft obese nontender nondistended Extremities warm and dry. CN II-XII intact. - Labs CBC & Chem 7: 03/12/19 04:15 03/12/19 04:15 Labs: Abnormal Lab Results - Last 24 Hours (Table) 03/12/19 03/12/19 Range/Units 04:15 04:15 RBC 4.23 L (4.30-5.90) m/uL Hgb 12.8 L (13.0-17.5) gm/dL Hct 37.2 L (39.0-53.0) % Plt Count 80 L (150-450) k/uL Chloride 108 H (98-107) mmol/L Glucose 104 H (74-99) mg/dL Assessment and Plan Assessment: POD#1 R Carotid Endart with patch #1 severe high-grade right ICA stenosis - Symptomatic #2 left lower extremity numbness #3 isolated left proximal leg weakness - improving #4 hyperlipidemia #5 hypertriglyceridemia #6 hypertension #7 BPH #8 COPD #9 active tobacco abuse Plan: Doing well post op. ASHLEY removed without issue. Further work-up and imaging per Neuro and cardiology for further areas of infacrt on MRI. Therapies as tolerated. Asa/Statin/Plavix. OKay for transfer from ICU. Okay for discharge from surgical standpoint when medically able. Follow up in office in 2 weeks.
[2019-03-12] MEDS: ATORVASTATIN 80 MG TAB PO SCH (21:22)
--- NOTE | 2019-03-13 01:29 | P.PN ---
Subjective Progress Note Date: 03/12/19 Principal diagnosis: Acute CVA with left-sided numbness and weakness. Patient is a 59-year-old male with a known history of COPD, , hypertension, BPH and left ear deafness was admitted to the hospital due to significant weakness or numbness of the left lower extremity/foot. Patient had CT angiogram of the neck showed significant right internal carotid artery stenosis. MRA of the head and cervical spine could not be done due to significant claustrophobia. 2-D echocardiogram showed ejection fraction 50-60% with no significant valvular abnormalities. 03/11/2019 Patient underwent a right carotid endarterectomy with patch angioplasty was done today. Patient is still having some left foot numbness. No complaints of chest pain or shortness of breath. No nausea vomiting or abdominal pain. Tolerating oral diet. No dysuria or hematuria. No headache or dizziness or lightheadedness. No fever no chills. Cardiology to be consulted for GRACIELA to rule out any cardiac embolic. 03/12/2019 Patient denied any complaints of chest pain or shortness of breath. Left foot numbness is almost resolved. Patient is being continued on aspirin and high intensity statin. Patient was started on losartan. Nifedipine has been discontinued. Cardiology has seen the patient and recommended echo with bubble study and loop recorder to assess for atrial fibrillation. TSH level is within normal limits. Patient is scheduled for MRI of the C-spine this afternoon. Patient will be given Ativan 1 mg IV as needed for claustrophobia and anxiety. All other review of systems negative except the above Current medications reviewed. Objective - Vital Signs Vital signs: Vital Signs Temp 97.4 F L 03/12/19 20:00 Pulse 64 03/12/19 20:00 Resp 15 03/12/19 20:00 BP 133/81 03/12/19 20:00 Pulse Ox 97 03/12/19 20:00 Intake & Output 03/12/19 03/12/19 03/13/19 06:59 18:59 06:59 Intake Total 1075 525 Output Total 835 650 Balance 240 -125 Weight 149.5 kg Intake: IV 975 525 Lactated Ringers 1,000 ml 975 525 @ 75 mls/hr IV .[id number] [facility] Rx#:[id number] Intake, IV Titration 100 Amount ceFAZolin 3 gm In Sodium 100 Chloride 0.9% 100 ml @ 200 mls/hr IVPB Q8H [facility] Rx#:[id number] Output: Drainage 30 Right Neck 30 Urine 805 650 Other: Voiding Method Indwelling Catheter Urinal Urinal # Voids 1 ABP, PAP, CO, CI - Last Documented Arterial Blood Pressure 130/62 - Exam PHYSICAL EXAMINATION: Patient is lying in the bed comfortably, no acute distress, awake alert and oriented.. HEENT: Normocephalic. Neck is supple. Pupils reactive. Nostrils clear. Oral cavity is moist. Ears reveal no drainage. Neck reveals no JVD, carotid bruits, or thyromegaly. Right carotid surgical site intact. CHEST EXAMINATION: Trachea is central. Symmetrical expansion. Lung dodson clear to auscultation and percussion. CARDIAC: Normal S1, S2 with no gallops. No murmurs ABDOMEN: Soft. Bowel sounds normal. No organomegaly. No abdominal bruits. Extremities: reveal no edema. No clubbing or cyanosis Neurologically awake, alert, oriented x3 with well-coordinated movements. Left lower extremity numbness and some weakness present. Skin: No rash or skin lesions. Psychiatric: Coperative. Nonsuicidal Musculoskeletal: No joint swelling or deformity. Normal range of motion. - Labs CBC & Chem 7: 03/12/19 04:15 03/12/19 04:15 Labs: Abnormal Lab Results - Last 24 Hours (Table) 03/12/19 03/12/19 Range/Units 04:15 04:15 RBC 4.23 L (4.30-5.90) m/uL Hgb 12.8 L (13.0-17.5) gm/dL Hct 37.2 L (39.0-53.0) % Plt Count 80 L (150-450) k/uL Chloride 108 H (98-107) mmol/L Glucose 104 H (74-99) mg/dL Assessment and Plan Assessment: Acute numbness and weakness of the left side due to acute/subacute CVA. MRI showed multiple acute cortical and subcortical ischemic type changes. Right-sided critical carotid stenosis of the internal carotid artery. Status post endarterectomy POD 0 Obesity BMI 42.2 Chronic thrombocytopenia. Etiology unknown. Platelet count is stable. Hypertension Hyperlipidemia Hypertension triglyceride anemia COPD History of carpal tunnel syndrome Ongoing nicotine addiction DVT prophylaxis Plan: Patient be continued on aspirin, Plavix and statins. MRI to be done. Neurology is following. Patient is status post right carotid endarterectomy. Otherwise continue the current management and further recommendations based on the clinical course. Time with Patient: Greater than 30
[2019-03-13] MEDS: PANTOPRAZOLE 40 MG TABLET PO SCH (06:42)
[2019-03-13] MEDS: LACTATED RINGERS 1,000 ML IV SCH (06:42)
[2019-03-13 07:21] LABS: Basophils % (A) 1 %; Eosinophils % (A) 1 %; HCT 42.6 % (39.0-53.0); HGB 14.1 gm/dL (13.0-17.5); Lymphocytes # (A) 1.5 k/uL (1.0-4.8); Lymphocytes % (A) 32 %; MCH 29.6 pg (25.0-35.0); MCV 89.8 fL (80.0-100.0); Mean Platelet Volume 7.8; Monocytes # (A) 0.4 k/uL (0-1.0); Monocytes % (A) 8 %; Neutrophils # (A) 2.8 k/uL (1.3-7.7); Neutrophils % (A) 57 %; RBC 4.74 m/uL (4.30-5.90); RDW 14.3 % (11.5-15.5); WBC 4.8 k/uL (3.8-10.6)
[2019-03-13 07:27] LABS: African American GFR (CKD) >90 (>60 ml/min/1.73 sqM); Anion Gap 8 mmol/L; Blood Urea Nitrogen 12 mg/dL (9-20); Calcium 9.2 mg/dL (8.4-10.2); Carbon Dioxide 26 mmol/L (22-30); Chloride 109 mmol/L (98-107); Glucose 101 mg/dL (74-99); Sodium 143 mmol/L (137-145)
[2019-03-13 07:33] LABS: Platelet Count 92 k/uL (150-450)
[2019-03-13] MEDS: ASPIRIN 81 MG PO SCH (10:22)
[2019-03-13] MEDS: LOSARTAN 50 MG TAB PO SCH ×2 (10:22→21:07)
[2019-03-13] MEDS: HEPARIN SODIUM,PORCINE 5,000 UNIT/ML 1 ML VIAL SQ SCH ×2 (10:22→21:07)
[2019-03-13] MEDS: CLOPIDOGREL 75 MG TAB PO SCH (10:22)
[2019-03-13] MEDS: METOPROLOL SUCCINATE (ER) 100 MG TAB.ER.24H PO SCH (10:22)
[2019-03-13] MEDS: NICOTINE 21MG/24HR PATCH TRANSDERM SCH (10:22)
[2019-03-13] MEDS: NITROGLYCERIN-D5W PMX 50 MG in DEXTROSE/WATER 1 250ML.BAG IV SCH (10:23)
[2019-03-13] MEDS: TAMSULOSIN 0.4 MG CAP.ER.24H PO SCH (10:24)
--- NOTE | 2019-03-13 15:42 | P.PN ---
Subjective Progress Note Date: 03/13/19 Principal diagnosis: Status post right carotid endarterectomy. Patient is evaluated today status post carotid endarterectomy performed 2 days prior. Patient is anxious to be able to going home. He voices no complaints although he admits to persistent right lower extremity weakness. Examination today revealed cranial nerves II through XII are grossly intact. Tongue is midline. There is no facial droop. Equal motor strength in the upper extremities is noted. Surgical wounds clean, dry and healing well. In summary the patient surgically stable. Plan: Agree with current medical therapy. Discharge per primary service. Would like to see the patient back in the office in approximately 2-3 weeks. Objective - Vital Signs Vital signs: Vital Signs Temp 96.9 F L 03/13/19 08:00 Pulse 82 03/13/19 08:00 Resp 15 03/13/19 04:17 BP 147/84 03/13/19 08:00 Pulse Ox 95 03/13/19 08:00 Intake & Output 03/12/19 03/13/19 03/13/19 18:59 06:59 18:59 Intake Total 525 600 480 Output Total 650 1525 Balance -125 -925 480 Weight 136.9 kg Intake: IV 525 Lactated Ringers 1,000 ml 525 @ 75 mls/hr IV .[id number] [facility] Rx#:[id number] Intake, IV Titration 600 Amount Lactated Ringers 1,000 ml 600 @ 75 mls/hr IV .[id number] [facility] Rx#:[id number] Oral 480 Output: Urine 650 1525 Other: Voiding Method Urinal Urinal # Voids 1 1 # Bowel Movements 0 ABP, PAP, CO, CI - Last Documented Arterial Blood Pressure 130/62 - Labs CBC & Chem 7: 03/13/19 06:33 03/13/19 06:33 Labs: Abnormal Lab Results - Last 24 Hours (Table) 03/13/19 03/13/19 Range/Units 06:33 06:33 Plt Count 92 L (150-450) k/uL Chloride 109 H (98-107) mmol/L Glucose 101 H (74-99) mg/dL
--- NOTE | 2019-03-13 16:51 | P.CONS ---
History of Present Illness - Chief Complaint Gait disturbance, left hemiparesthesias - History of Present Illness I had the opportunity to see patient for inpatient rehab consultation with regard to gait disturbance. He was admitted to [facility] March 08 acute onset left-sided weakness. Seen by vascular surgeon, Dr. Sandoval who diagnosed right ICA stenosis and advanced March 11 underwent right carotid endarterectomy with patch angioplasty. Seen by cardiology. Carotid Doppler demonstrates atherosclerosis right ICA. Neck CTA demonstrates right ICA stenosis. Brain MRI demonstrates multiple ischemic areas. C-spine MRI with C4 herniation and C5 bulge. PT reports supervision for bed mobility minimal assistance for transfers and gait 80 feet with roller walker. OT reports supervision for upper dressing and minimal assistance for lower dressing, bathing, toileting and functional mobility/transfers. Speech therapy reports MOCA 28/30. Swallow within functional limits. Previous functional history as elicited from patient: 59-year-old right-handed white male who is lives in a first-floor of a 2 floor home with daughter. Patient is self-employed and works full-time. 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 Describes independent with own cooking, laundry, driving, standing shower and gait without device. Was a pack a day smoker but has quit. Denies cough. Charlotte goldstein is regular doctor. Family history of mother with cancer. Review of Systems Review of systems: ENT: Denies sneezes or discharge. Eyes: Denies discharge or photophobia. Cardiac: Denies chest pain or palpitation. Pulmonary: Denies cough or shortness of breath. Gastrointestinal: Denies nausea, emesis, constipation, diarrhea. Genitourinary: Denies discharge or frequency. Musculoskeletal: Denies muscle or bone aches. Neurologic: Left-sided weakness and numbness. Endocrine: Denies shakes or sweats. Oncology: Denies cancers. Dermatologic: Denies rash, itching, pruritus. ALLERGY/immunology: Denies sneezes, rashes. Past Medical History Past Medical History: COPD, Hyperlipidemia, Hypertension History of Any Multi-Drug Resistant Organisms: None Reported Past Surgical History: No Surgical Hx Reported Additional Past Surgical History / Comment(s): carpal tunnel bilat hands with release, RT knee miniscus repair. Past Anesthesia/Blood Transfusion Reactions: No Reported Reaction Past Psychological History: No Psychological Hx Reported Smoking Status: Current every day smoker Past Alcohol Use History: None Reported Past Drug Use History: None Reported Medications and Allergies Home Medications Medication Instructions Recorded Confirmed Type Ibuprofen [Motrin] 800 mg PO TID PRN 03/08/19 03/08/19 History Metoprolol Succinate (ER) [Toprol 100 mg PO DAILY 03/08/19 03/08/19 History Xl] NIFEdipine [NIFEdipine ER] 60 mg PO DAILY 03/08/19 03/08/19 History Rosuvastatin Calcium [Crestor] 20 mg PO HS 03/08/19 03/08/19 History Tamsulosin HCl [Flomax] 0.4 mg PO DAILY 03/08/19 03/08/19 History cloNIDine HCL [Catapres] 0.2 mg PO DAILY 03/08/19 03/08/19 History Allergies Allergy/AdvReac Type Severity Reaction Status Date / Time No Known Allergies Allergy Verified 03/08/19 18:14 Physical Exam Vitals: Vital Signs Temp Pulse Resp BP BP Pulse Ox 03/13/19 12:00 83 134/80 96 03/13/19 08:00 96.9 F L 82 147/84 95 03/13/19 04:17 15 03/13/19 04:16 57 L 15 157/76 94 L 03/12/19 23:35 98.1 F 97 16 155/95 97 03/12/19 20:00 97.4 F L 64 15 133/81 97 Intake and Output 03/13/19 03/13/19 03/13/19 06:59 14:59 22:59 Intake Total 600 480 Output Total 1525 Balance -925 480 Intake: Intake, IV Titration 600 Amount Lactated Ringers 1,000 ml 600 @ 75 mls/hr IV .[id number] [facility] Rx#:[id number] Oral 480 Output: Urine 1525 Other: Voiding Method Urinal # Voids 1 # Bowel Movements 0 Weight 136.9 kg Skin: Good color, texture, turgor. General: Obese build and comfortable appearance. Head: Normocephalic, atraumatic. Eyes: Symmetric. Pupils equal round. Ears: Symmetric. Hearing within normal limits. Mouth: Clear. Neck: Supple. Carotid without bruit. Cardiac: Regular rate and rhythm. Lungs: Clear anteriorly and posteriorly. Abdomen: Soft active nontender, overweight. Extremities: Normal tone. Neurological: Mental status: Alert, cooperative, pleasant. Cranial nerves: Symmetric facial tone and trapezius. Motor: Normal strength and isolation right side. Right arm and leg with isolati on but with weakness of right hand 4/5 and right ankle 3/5. Sensation: Intact throughout. DTRs: Symmetric and equal throughout. Mobility: Sits and stands with minimal assistance. Results CBC & Chem 7: 03/13/19 06:33 03/13/19 06:33 Labs: Abnormal Lab Results - Last 24 Hours (Table) 03/13/19 03/13/19 Range/Units 06:33 06:33 Plt Count 92 L (150-450) k/uL Chloride 109 H (98-107) mmol/L Glucose 101 H (74-99) mg/dL Assessment and Plan (1) Cerebrovascular accident Current Visit: Yes Status: Acute Code(s): I63.9 - CEREBRAL INFARCTION, UNSPECIFIED SNOMED Code(s): 150463433 Plan: Impression: 1. Gait disturbance due to right MCA stroke resultant left hemiparesthesias. 2. Morbid obesity. 3. Hypertension. 4. Dyslipidemia. 5. COPD. Can some plan: At this time PT, OT, MANAGING EDITOR ongoing. Patient doing well cognitively but has some deficits functionally and would anticipate balance problems as well. At this time. Discussed inpatient rehab with patient and he seems agreeable.
--- NOTE | 2019-03-13 16:58 | P.PN ---
<Lenka Laguna - Last Filed: 03/13/19 16:58> Subjective This is Lenka Laguna PA-C dictating a progress note on this patient The patient was interviewed and examined by me IMPRESSION / ASSESSMENT: History of recent CVA, evidence of possible embolic strokes on MRI Hypertension, uncontrolled Right carotid stenosis status post carotid endarterectomy Dyslipidemia Increased BMI PLAN: Add Dyazide for blood pressure control We'll discuss loop monitor implantation to evaluate for possible silent A. fib to explain his bilateral embolic strokes Plan for loop monitor implantation tomorrow HPI/interval history Patient is a 59-year-old male who was admitted after a CVA and was found to have right carotid stenosis and underwent a right carotid endarterectomy. During his admission, an MRI showed evidence of possible embolic strokes. Bubble study showed intra-atrial and intraventricular septum intact. Denies any history of atrial fibrillation or symptoms of palpations. Yesterday we discontinued his c lonidine and nifedipine and started him on losartan. His blood pressure has remained elevated. Patient states he has been feeling well, denies any shortness of breath, chest pain, palpitations, lightheadedness, dizziness, syncope. He was able to shower and walk around without any difficulty. EXAMINATION Temperature 96.9F, pulse 82, blood pressure 147/84, oxygen saturation 95% on room air Patient seen and examined, in no acute distress Heart is regular, no murmurs appreciated Lungs clear to auscultation bilaterally REVIEW OF LABS, ECG Limited echo bubble study revealed intra-atrial and intraventricular septum intact WBC 4.8, hemoglobin 14.1, potassium 4.0, BUN 12, creatinine 0.83, TSH within normal limits at 0.762 Objective - Vital Signs Vital signs: Vital Signs Temp 96.9 F L 03/13/19 08:00 Pulse 71 03/13/19 16:00 Resp 15 03/13/19 04:17 BP 167/89 03/13/19 16:00 Pulse Ox 96 03/13/19 16:00 Intake & Output 03/12/19 03/13/19 03/13/19 18:59 06:59 18:59 Intake Total 525 600 480 Output Total 650 1525 Balance -125 -925 480 Weight 136.9 kg Intake: IV 525 Lactated Ringers 1,000 ml 525 @ 75 mls/hr IV .[id number] [facility] Rx#:[id number] Intake, IV Titration 600 Amount Lactated Ringers 1,000 ml 600 @ 75 mls/hr IV .[id number] [facility] Rx#:[id number] Oral 480 Output: Urine 650 1525 Other: Voiding Method Urinal Urinal # Voids 1 1 # Bowel Movements 0 ABP, PAP, CO, CI - Last Documented Arterial Blood Pressure 130/62 - Labs CBC & Chem 7: 03/13/19 06:33 03/13/19 06:33 Labs: Abnormal Lab Results - Last 24 Hours (Table) 03/13/19 03/13/19 Range/Units 06:33 06:33 Plt Count 92 L (150-450) k/uL Chloride 109 H (98-107) mmol/L Glucose 101 H (74-99) mg/dL <Mega Maynard - Last Filed: 03/13/19 17:56> Subjective Yesterday we added losartan 50 mg twice daily. Today we have added Dyazide and will maximize antihypertensive therapy Continue atorvastatin and LDL goal is close to 15 g/dL Watch for atrial fibrillation on telemetry and if he cannot find any atrial fibrillation that tomorrow I will proceed with implantation of a loop monitor I will discuss this with the patient before proceeding. I did have a brief talk with him regarding this Weight reduction Sleep apnea assessment Objective - Vital Signs Vital signs: Vital Signs Temp 96.9 F L 03/13/19 08:00 Pulse 71 03/13/19 16:00 Resp 15 03/13/19 04:17 BP 167/89 03/13/19 16:00 Pulse Ox 96 03/13/19 16:00 Intake & Output 03/12/19 03/13/19 03/13/19 18:59 06:59 18:59 Intake Total 525 600 480 Output Total 650 1525 Balance -125 -925 480 Weight 136.9 kg Intake: IV 525 Lactated Ringers 1,000 ml 525 @ 75 mls/hr IV .[id number] [facility] Rx#:[id number] Intake, IV Titration 600 Amount Lactated Ringers 1,000 ml 600 @ 75 mls/hr IV .[id number] [facility] Rx#:[id number] Oral 480 Output: Urine 650 1525 Other: Voiding Method Urinal Urinal # Voids 1 1 # Bowel Movements 0 ABP, PAP, CO, CI - Last Documented Arterial Blood Pressure 130/62 - Labs CBC & Chem 7: 03/13/19 06:33 03/13/19 06:33 Labs: Abnormal Lab Results - Last 24 Hours (Table) 03/13/19 03/13/19 Range/Units 06:33 06:33 Plt Count 92 L (150-450) k/uL Chloride 109 H (98-107) mmol/L Glucose 101 H (74-99) mg/dL
[2019-03-13] MEDS: TRIAMTERENE-HCTZ 37.5-25MG 1 EACH CAP PO SCH (17:36)
[2019-03-13] MEDS: ATORVASTATIN 80 MG TAB PO SCH (21:07)
[2019-03-14 06:27] LABS: Basophils % (A) 0 %; Eosinophils # (A) 0.1 k/uL (0-0.7); Eosinophils % (A) 1 %; HCT 42.1 % (39.0-53.0); HGB 13.9 gm/dL (13.0-17.5); Lymphocytes # (A) 1.8 k/uL (1.0-4.8); Lymphocytes % (A) 34 %; MCH 29.6 pg (25.0-35.0); MCHC 32.9 g/dL (31.0-37.0); MCV 90.1 fL (80.0-100.0); Mean Platelet Volume 7.5; Monocytes # (A) 0.5 k/uL (0-1.0); Monocytes % (A) 9 %; Neutrophils # (A) 2.8 k/uL (1.3-7.7); Neutrophils % (A) 54 %; Platelet Count 100 k/uL (150-450); RBC 4.68 m/uL (4.30-5.90); RDW 14.3 % (11.5-15.5); WBC 5.3 k/uL (3.8-10.6)
[2019-03-14 06:44] LABS: African American GFR (CKD) >90 (>60 ml/min/1.73 sqM); Anion Gap 10 mmol/L; Blood Urea Nitrogen 15 mg/dL (9-20); Calcium 8.9 mg/dL (8.4-10.2); Carbon Dioxide 24 mmol/L (22-30); Chloride 108 mmol/L (98-107); Glucose 114 mg/dL (74-99); Potassium 3.7 mmol/L (3.5-5.1); Sodium 142 mmol/L (137-145)
[2019-03-14] MEDS: PANTOPRAZOLE 40 MG TABLET PO SCH (06:46)
[2019-03-14] MEDS: METOPROLOL SUCCINATE (ER) 100 MG TAB.ER.24H PO SCH (09:13)
[2019-03-14] MEDS: ASPIRIN 81 MG PO SCH (09:13)
[2019-03-14] MEDS: TRIAMTERENE-HCTZ 37.5-25MG 1 EACH CAP PO SCH (09:13)
[2019-03-14] MEDS: LOSARTAN 50 MG TAB PO SCH ×2 (09:14→20:42)
[2019-03-14] MEDS: NICOTINE 21MG/24HR PATCH TRANSDERM SCH (09:14)
[2019-03-14] MEDS: TAMSULOSIN 0.4 MG CAP.ER.24H PO SCH (09:14)
[2019-03-14] MEDS: HEPARIN SODIUM,PORCINE 5,000 UNIT/ML 1 ML VIAL SQ SCH ×2 (09:14→20:42)
[2019-03-14] MEDS: CLOPIDOGREL 75 MG TAB PO SCH (09:14)
--- NOTE | 2019-03-14 09:44 | PN ---
PROGRESS NOTE DATE OF SERVICE: 03/14/2019 I had the pleasure of re-evaluating Gurmeet Elkins, who is currently lying in bed on the medical floor, he denies new complaints. In particular, he denies headache and states that in particular his left lower extremity is moving quite well at this time. I spoke to Cardiology earlier today and they stated the patient's bubble study was unrevealing for shunt and they intend to place loop recorder today and subsequently the patient may be discharged to rehab. CURRENT MEDICATIONS: Tylenol, Maalox, Xanax, aspirin 162 mg daily, Lipitor 80 mg daily, Tums, Plavix 775 mg daily, heparin subcu, Macy, Cozaar, Toprol-XL, nicotine patch, Protonix, Flomax, Restoril, Dyazide, and Tigan p.r.n. PHYSICAL EXAM: The patient is lying in bed. He is a fair historian, overweight and appears of stated age. There are no family members at the bedside. VITAL SIGNS: Blood pressure is 143/80 with pulse of 74, respirations 17, temperature is 98.1. HIGHER CORTICAL FUNCTION: MENTAL STATUS: Patient was alert, oriented to time, place and person. There was no aphasia or dysarthria. CRANIAL NERVES II THROUGH XII: Intact except for diminution to pinprick and light touch on the left side of the face as compared to the right and reduced hearing on the left. MOTOR EXAMINATION: No pronator drift. Normal bulk and tone are noted. Strength is 5/5 throughout except at the left iliopsoas/hamstrings which are 4+/5. Sensory, patient reports diminution to pinprick and light touch involving the left lower extremities, he right upper extremities are symmetric. Plantar responses, flexor on the right and extensor on the left. COORDINATION: There is dysmetria with left [id number] movements. These are intact on the right and [id number] are intact bilaterally. DIAGNOSTIC TESTING: As described above, bubble study demonstrated no shunt. MRI of the cervical spine without contrast from 03/12/2019 demonstrated no spinal stenosis, no intrinsic cord signal abnormality and no abnormal enhancement. LAB WORK: Demonstrates a white blood count of 5.3, hemoglobin of 13.9, platelet count 100. Sodium 142, potassium 3.7, BUN 15 with a creatinine of 0.92. IMPRESSION: 1. Multiple, bilateral (right greater than left) cortical/subcortical infarcts. The etiology of the right-sided events may be at least in part related to the documented severe right carotid stenosis, although with evidence of bilateral events, cardioembolic phenomenon is considered. The patient's risk factors for stroke include hypertension, hyperlipidemia, obesity, tobacco abuse, carotid occlusive disease, and male sex. The patient was not on aspirin or other anti- platelet/anticoagulant medication at the time of this event. 2. Greater than 80% stenosis of the right internal carotid artery per CTA without significant stenosis on the left. The patient is status post right carotid endarterectomy on 03/11/2019. 3. Thrombocytopenia. 4. Long-standing left ear deafness. RECOMMENDATION: 1. I reassured the patient his neurologic examination is stable. 2. Risk factor modification. The patient is currently maintained on Plavix, aspirin and Lipitor. 3. Bubble study demonstrated no shunt. An MRI of the cervical spine with and without contrast was unrevealing. 4. Cardiology Service intends to place a loop recorder later today and the patient states the plan has been for him to go to a rehab upon discharge. 5. The patient was strongly recommended to quit smoking. 6. Weight loss and regular exercise program to tolerance are recommended. 7. It would be acceptable to discharge the patient to rehab from a neurologic standpoint when medically stable. Thank you for allowing me to participate in care of your patient. MMMARTHAL / EDISON: [id number] /
[2019-03-14] MEDS ORDERED: ceFAZolin IN SWFI 2 GM/20 ML SYRINGE IVP ONE (09:53)
[2019-03-14] MEDS ORDERED: ceFAZolin IN SWFI 2 GM/20 ML SYRINGE IVP STA (09:56)
[2019-03-14] MEDS ORDERED: MIDAZOLAM (PF) 2 MG/2 ML VIAL IV ONE (11:00)
[2019-03-14] MEDS ORDERED: LIDOCAINE 1% INJ 10MG/ML (20 ML MDV) SQ ONE (11:01)
[2019-03-14] MEDS ORDERED: IV FLUID CONTINUATION 1,000 ML IV ONE (11:02)
--- NOTE | 2019-03-14 11:15 | P.PCN ---
Preoperative Diagnosis: Loop monitor implant Primary physicians: Dr. Boyd Edge Gluer: Dr. Davey Indication: Multiple bilateral cerebral embolic events that are not explained by the extent of his right carotid stenosis. Rule out atrial fibrillation as cause of embolic strokes Patient was brought to the EP lab in a fasting state. Written informed consent was obtained prior to the procedure. The left pectoral area was prepped and draped per protocol. Intravenous antibiotic was administered preoperatively. A subcutaneous Loop monitor was implanted successfully and the wound was closed per protocol. The device was programmed to detect significant malcom- arrhythmic and tachy-arrhythmic events, per protocol. Device and programming details: A. fib protocol Patient underwent EP procedure under conscious sedation/moderate sedation, monitoring of the level of consciousness and physiologic parameters including but not limited to vital signs and oxygenation. Patient tolerated the procedure well without any acute complications. Start time: 1059 Stop time: 1108
--- NOTE | 2019-03-14 11:24 | P.PN ---
Subjective Patient is doing well from a cardiac standpoint. He denied any chest discomfort dizziness lightheadedness or palpitations this morning. He is recovering well after his recent CVA. His blood pressure was initially uncontrolled but now is much better controlled and his the 140s. Yesterday started him on Dyazide He denies any chest discomfort dizziness lightheadedness palpitations. No orthopnea. He was resting comfortably in bed. On examination blood pressure is 143/80 mmHg pulse rate in the 70s afebrile 98.1F Breath sounds are clear no rhonchi no crackles Heart sounds S1 and S2 are normal no murmurs or gallops no rub Abdomen soft nontender Breath sounds are clear Extremities are warm no edema Labs reviewed hemoglobin 13.9 Sodium 142 potassium 3.7 BUN 15, creatinine 0.92 TSH 0.762 Triglycerides 137, total forestall 188, LDL 112, HDL 29 Impression Bilateral embolic strokes that are not explained by the extent of his right-sided carotid artery disease Status post carotid endarterectomy Uncontrolled hypertension now better controlled after stopping clonidine and nifedipine starting losartan 50 g twice daily Dyazide added yesterday He takes only 10 mg of Crestor because it causes abdominal discomfort the first switched him to atorvastatin currently 80 mg by mouth daily for a goal of LDL less than 50 Aspirin has been reduced to 81 mg daily His bubble study did not show any evidence for [id number] shunting at the atrial level Low HDL and elevated triglycerides and LDL 112 mg/dL on Crestor 10 mg by mouth daily Plan Recommend loop monitor implantation to look for atrial fibrillation to explain his bilateral embolic strokes Statins at an appropriate dose that would reduce LDL to close to 50 mm of deciliter Weight reduction sleep apnea assessment Hypertension controlled on losartan 50 mg twice daily and Dyazide Continue metoprolol Stop Procardia and stop clonidine f/u with dr espino in 2 weeks Objective - Vital Signs Vital signs: Vital Signs Temp 98.5 F 03/14/19 08:00 Pulse 70 03/14/19 08:00 Resp 17 03/14/19 05:40 BP 165/95 03/14/19 08:00 Pulse Ox 96 03/14/19 08:00 Intake & Output 03/13/19 03/14/19 03/14/19 18:59 06:59 18:59 Intake Total 720 100 Balance 720 100 Weight 129 kg Intake: IV 100 Oral 720 Other: Voiding Method Urinal # Voids 1 1 1 # Bowel Movements 0 ABP, PAP, CO, CI - Last Documented Arterial Blood Pressure 130/62 - Labs CBC & Chem 7: 03/14/19 05:42 03/14/19 05:42 Labs: Abnormal Lab Results - Last 24 Hours (Table) 03/14/19 03/14/19 Range/Units 05:42 05:42 Plt Count 100 L (150-450) k/uL Chloride 108 H (98-107) mmol/L Glucose 114 H (74-99) mg/dL
--- NOTE | 2019-03-14 11:26 | P.PRLE ---
RE: SeveroGurmeet Dear Dr. Boyd, Mr. Elkins underwent carotid endarterectomy in the right side for severe carotid artery disease. His blood pressure was also elevated However he has bilateral embolic strokes that are not explained by the extent of his carotid artery disease and therefore a loop monitor was implanted to look for sudden episodes of atrial fibrillation Impression Bilateral embolic strokes that are not explained by the extent of his right- sided carotid artery disease Status post carotid endarterectomy Uncontrolled hypertension now better controlled after stopping clonidine and nifedipine starting losartan 50 g twice daily Dyazide added yesterday He takes only 10 mg of Crestor because it causes abdominal discomfort the first switched him to atorvastatin currently 80 mg by mouth daily for a goal of LDL less than 50 Aspirin has been reduced to 81 mg daily His bubble study did not show any evidence for [id number] shunting at the atrial level Low HDL and elevated triglycerides and LDL 112 mg/dL on Crestor 10 mg by mouth daily Plan Recommend loop monitor implantation to look for atrial fibrillation to explain his bilateral embolic strokes Statins at an appropriate dose that would reduce LDL to close to 50 mm of deciliter Weight reduction sleep apnea assessment Hypertension controlled on losartan 50 mg twice daily and Dyazide Continue metoprolol Stop Procardia and stop clonidine Thank you for entrusting me with the care of the patient Warm regards Sincerely Mega Maynard
--- NOTE | 2019-03-14 15:13 | P.DS ---
Providers Date of admission: 03/08/19 18:57 Expected date of discharge: 03/14/19 Attending physician: Saima Olivo Consults: 03/09/19 11:29 Consult Physician Routine Consulting Provider: Kimberlyn Sandoval Consult Reason/Comments: Severe to Critical Carotid Stenosis, R ICA Do you want consulting provider notified?: Yes 03/10/19 08:53 Consult Physician Urgent Consulting Provider: Jose C Russo Consult Reason/Comments: cva Do you want consulting provider notified?: Yes 03/11/19 09:25 Consult Physician Routine Consulting Provider: Mega Maynard Consult Reason/Comments: bilateral CVAs. need for GRACIELA/loop recorder? Do you want consulting provider notified?: Yes 03/13/19 08:45 Consult Physician Urgent Consulting Provider: Catrachito Calles Consult Reason/Comments: IPR Do you want consulting provider notified?: Yes Primary care physician: [facility] Course: Final diagnosis Acute numbness and weakness of the left side due to acute/subacute CVA. Right-sided critical carotid stenosis of the internal carotid artery status post endarterectomy Obesity BMI 42.2 Chronic thrombocytopenia. Platelet count is stable Lipidemia 9 hypertension Hypertriglyceridemia COPD History of carpal tunnel syndrome Ongoing nicotine addiction Discharge disposition The patient is being discharged in a stable condition with guarded prognosis to [facility] for rehab. Total time taken is 35 minutes. Patient will continue on aspirin, Plavix and statins. Patient received a loop recorder this morning to assess for atrial fibrillation and is being closely followed with cardiology. History of present illness This is a 59-year-old male who was admitted to the hospital due to significant weakness and numbness of the left lower extremity and foot. CT angiogram was done showing significant right internal carotid artery stenosis. Patient underwent a right carotid endarterectomy with patch angioplasty. Patient will be going to [facility] for rehab. Patient is sitting up in bed eating food as he has been nothing by mouth for the loop placement. Patient denies any shortness of breath, chest pain, palpitations at this time. Patient is afebrile. Patient denies any headache, dizziness, or lightheadedness at this time. Patient was followed closely with neurology and cardiology and from their standpoint patient is okay to be discharged to the rehab facility today. Patient is being discharged with the guarded diagnosis and being transferred for further evaluation and treatment to [facility]. On exam vital signs are stable. Cardio S1 and S2 are heard. Respiratory is clear to auscultation with no wheezing or rhonchi noted. Abdomen is soft, nontender, obese. Nervous system shows no new focal deficits. Please refer to the medication reconciliation sheet for list of medications. Patient Condition at Discharge: Stable Plan - Discharge Summary Discharge Rx Participant: Yes New Discharge Prescriptions: New Losartan [Cozaar] 100 mg PO DAILY #90 tab Triamterene-Hctz 37.5-25Mg [Dyazide 37.5-25 Capsule] 1 cap PO DAILY #90 capsule Aspirin EC [Ecotrin Low Dose] 81 mg PO DAILY #90 tablet. Atorvastatin [Lipitor] 80 mg PO DAILY #90 tab Clopidogrel Bisulfate [Plavix] 75 mg PO DAILY #90 tab Nicotine 21Mg/24Hr Patch [Habitrol] 1 patch TRANSDERM DAILY patch Continue Ibuprofen [Motrin] 800 mg PO TID PRN PRN Reason: Pain Tamsulosin HCl [Flomax] 0.4 mg PO DAILY Metoprolol Succinate (ER) [Toprol XL] 100 mg PO DAILY Discontinued cloNIDine HCL [Catapres] 0.2 mg PO DAILY NIFEdipine [NIFEdipine ER] 60 mg PO DAILY Rosuvastatin Calcium [Crestor] 20 mg PO HS Discharge Medication List Ibuprofen [Motrin] 800 mg PO TID PRN 03/08/19 [History] Metoprolol Succinate (ER) [Toprol XL] 100 mg PO DAILY 03/08/19 [History] Tamsulosin HCl [Flomax] 0.4 mg PO DAILY 03/08/19 [History] Aspirin EC [Ecotrin Low Dose] 81 mg PO DAILY #90 tablet. 03/14/19 [Rx] Atorvastatin [Lipitor] 80 mg PO DAILY #90 tab 03/14/19 [Rx] Clopidogrel Bisulfate [Plavix] 75 mg PO DAILY #90 tab 03/14/19 [Rx] Losartan [Cozaar] 100 mg PO DAILY #90 tab 03/14/19 [Rx] Nicotine 21Mg/24Hr Patch [Habitrol] 1 patch TRANSDERM DAILY patch 03/14/19 [Rx] Triamterene-Hctz 37.5-25Mg [Dyazide 37.5-25 Capsule] 1 cap PO DAILY #90 capsule 03/14/19 [Rx] Follow up Appointment(s)/Referral(s): Mega Maynard MD [STAFF PHYSICIAN] - 1 Week (Device clinic follow-up within one week for suture removal Follow-up with Dr. Maynard/Lenka Laguna/Darcy Hayden 2-3 weeks for hypertension management) Chase Boyd MD [Primary Care Provider] - 1-2 days Activity/Diet/Wound Care/Special Instructions: inpatient rehab Activity as tolerated Continue current diet, heart healthy Follow-up with cardiology in 1-2 weeks. Discharge Disposition: TRANSFER TO SNF/ECF
[2019-03-14] MEDS: ATORVASTATIN 80 MG TAB PO SCH (20:42)
--- NOTE | 2019-03-15 00:08 | P.PN ---
Subjective Progress Note Date: 03/13/19 Principal diagnosis: Acute CVA with left-sided numbness and weakness. Patient is a 59-year-old male with a known history of COPD, , hypertension, BPH and left ear deafness was admitted to the hospital due to significant weakness or numbness of the left lower extremity/foot. Patient had CT angiogram of the neck showed significant right internal carotid artery stenosis. MRA of the head and cervical spine could not be done due to significant claustrophobia. 2-D echocardiogram showed ejection fraction 50-60% with no significant valvular abnormalities. 03/11/2019 Patient underwent a right carotid endarterectomy with patch angioplasty was done today. Patient is still having some left foot numbness. No complaints of chest pain or shortness of breath. No nausea vomiting or abdominal pain. Tolerating oral diet. No dysuria or hematuria. No headache or dizziness or lightheadedness. No fever no chills. Cardiology to be consulted for GRACIELA to rule out any cardiac embolic. 03/12/2019 Patient denied any complaints of chest pain or shortness of breath. Left foot numbness is almost resolved. Patient is being continued on aspirin and high intensity statin. Patient was started on losartan. Nifedipine has been discontinued. Cardiology has seen the patient and recommended echo with bubble study and loop recorder to assess for atrial fibrillation. TSH level is within normal limits. Patient is scheduled for MRI of the C-spine this afternoon. Patient will be given Ativan 1 mg IV as needed for claustrophobia and anxiety. 03/13/2090 Patient denied any complaints of chest pain or shortness of breath. Left foot numbness almost resolved. Continued on losartan and Dyazide was added. Cardiology is planning for loop monitor tomorrow to assess for silent atrial f ibrillation rate MRI of the cervical spine showed disc bulging and herniation at C4-C5, C5 6. No spinal stenosis of fracture. Neurology and cardiology is following. All other review of systems negative except the above Current medications reviewed. Objective - Vital Signs Vital signs: Vital Signs Temp 96.9 F L 03/13/19 08:00 Pulse 82 03/13/19 08:00 Resp 15 03/13/19 04:17 BP 147/84 03/13/19 08:00 Pulse Ox 95 03/13/19 08:00 Intake & Output 03/12/19 03/13/19 03/13/19 18:59 06:59 18:59 Intake Total 525 600 480 Output Total 650 1525 Balance -125 -925 480 Weight 136.9 kg Intake: IV 525 Lactated Ringers 1,000 ml 525 @ 75 mls/hr IV .[id number] JAM Rx#:[id number] Intake, IV Titration 600 Amount Lactated Ringers 1,000 ml 600 @ 75 mls/hr IV .[id number] JAM Rx#:[id number] Oral 480 Output: Urine 650 1525 Other: Voiding Method Urinal Urinal # Voids 1 1 # Bowel Movements 0 ABP, PAP, CO, CI - Last Documented Arterial Blood Pressure 130/62 - Exam PHYSICAL EXAMINATION: Patient is lying in the bed comfortably, no acute distress, awake alert and oriented.. HEENT: Normocephalic. Neck is supple. Pupils reactive. Nostrils clear. Oral cavity is moist. Ears reveal no drainage. Neck reveals no JVD, carotid bruits, or thyromegaly. Right carotid surgical site intact. CHEST EXAMINATION: Trachea is central. Symmetrical expansion. Lung dodson clear to auscultation and percussion. CARDIAC: Normal S1, S2 with no gallops. No murmurs ABDOMEN: Soft. Bowel sounds normal. No organomegaly. No abdominal bruits. Extremities: reveal no edema. No clubbing or cyanosis Neurologically awake, alert, oriented x3 with well-coordinated movements. Left lower extremity numbness and some weakness present. Skin: No rash or skin lesions. Psychiatric: Coperative. Nonsuicidal Musculoskeletal: No joint swelling or deformity. Normal range of motion. - Labs CBC & Chem 7: 03/14/19 05:42 03/14/19 05:42 Labs: Abnormal Lab Results - Last 24 Hours (Table) 03/13/19 03/13/19 Range/Units 06:33 06:33 Plt Count 92 L (150-450) k/uL Chloride 109 H (98-107) mmol/L Glucose 101 H (74-99) mg/dL Assessment and Plan Assessment: Acute numbness and weakness of the left side due to acute/subacute CVA. MRI showed multiple acute cortical and subcortical ischemic type changes. Right-sided critical carotid stenosis of the internal carotid artery. Status post endarterectomy during this admission. Obesity BMI 42.2 Chronic thrombocytopenia. Etiology unknown. Platelet count is stable. Hypertension Hyperlipidemia Hypertension triglyceride anemia COPD History of carpal tunnel syndrome Ongoing nicotine addiction DVT prophylaxis Plan: Patient be continued on aspirin, Plavix and statins. MRI the cervical spine and MRI of the head was done. Neurology is following. Patient is status post right carotid endarterectomy. Blood pressure medications are being adjusted. Otherwise continue the current management and further recommendations based on the clinical course. Time with Patient: Greater than 30
--- NOTE | 2019-03-15 00:10 | P.PN ---
Subjective Progress Note Date: 03/14/19 Principal diagnosis: Acute CVA with left-sided numbness and weakness. Patient is a 59-year-old male with a known history of COPD, , hypertension, BPH and left ear deafness was admitted to the hospital due to significant weakness or numbness of the left lower extremity/foot. Patient had CT angiogram of the neck showed significant right internal carotid artery stenosis. MRA of the head and cervical spine could not be done due to significant claustrophobia. 2-D echocardiogram showed ejection fraction 50-60% with no significant valvular abnormalities. 03/11/2019 Patient underwent a right carotid endarterectomy with patch angioplasty was done today. Patient is still having some left foot numbness. No complaints of chest pain or shortness of breath. No nausea vomiting or abdominal pain. Tolerating oral diet. No dysuria or hematuria. No headache or dizziness or lightheadedness. No fever no chills. Cardiology to be consulted for GRACIELA to rule out any cardiac embolic. 03/12/2019 Patient denied any complaints of chest pain or shortness of breath. Left foot numbness is almost resolved. Patient is being continued on aspirin and high intensity statin. Patient was started on losartan. Nifedipine has been discontinued. Cardiology has seen the patient and recommended echo with bubble study and loop recorder to assess for atrial fibrillation. TSH level is within normal limits. Patient is scheduled for MRI of the C-spine this afternoon. Patient will be given Ativan 1 mg IV as needed for claustrophobia and anxiety. 03/13/2019 Patient denied any complaints of chest pain or shortness of breath. Left foot numbness almost resolved. Continued on losartan and Dyazide was added. Cardiology is planning for loop monitor tomorrow to assess for silent atrial f ibrillation rate MRI of the cervical spine showed disc bulging and herniation at C4-C5, C5 6. No spinal stenosis of fracture. Neurology and cardiology is following. 03/14/2019 Patient denied any complaints of chest pain or shortness of breath. No complaints of left foot numbness. No other weakness noted. Blood pressure is fairly controlled. Patient had loop monitor placement today. Otherwise patient denied any new complaints. Patient is stable to be discharged to rehab once placement is available. All other review of systems negative except the above Current medications reviewed. Objective - Vital Signs Vital signs: Vital Signs Temp 98.5 F 03/14/19 08:00 Pulse 75 03/14/19 16:00 Resp 17 03/14/19 05:40 BP 167/87 03/14/19 16:00 Pulse Ox 97 03/14/19 16:00 Intake & Output 03/13/19 03/14/19 03/14/19 18:59 06:59 18:59 Intake Total 720 580 Balance 720 580 Weight 129 kg 129 kg Intake: IV 100 Oral 720 480 Other: Voiding Method Urinal # Voids 1 1 1 # Bowel Movements 0 ABP, PAP, CO, CI - Last Documented Arterial Blood Pressure 130/62 - Exam PHYSICAL EXAMINATION: Patient is lying in the bed comfortably, no acute distress, awake alert and oriented.. HEENT: Normocephalic. Neck is supple. Pupils reactive. Nostrils clear. Oral cavity is moist. Ears reveal no drainage. Neck reveals no JVD, carotid bruits, or thyromegaly. Right carotid surgical site intact. CHEST EXAMINATION: Trachea is central. Symmetrical expansion. Lung dodson clear to auscultation and percussion. CARDIAC: Normal S1, S2 with no gallops. No murmurs ABDOMEN: Soft. Bowel sounds normal. No organomegaly. No abdominal bruits. Extremities: reveal no edema. No clubbing or cyanosis Neurologically awake, alert, oriented x3 with well-coordinated movements. Left lower extremity numbness and some weakness present. Skin: No rash or skin lesions. Psychiatric: Coperative. Nonsuicidal Musculoskeletal: No joint swelling or deformity. Normal range of motion. - Labs CBC & Chem 7: 03/14/19 05:42 03/14/19 05:42 Labs: Abnormal Lab Results - Last 24 Hours (Table) 03/14/19 03/14/19 Range/Units 05:42 05:42 Plt Count 100 L (150-450) k/uL Chloride 108 H (98-107) mmol/L Glucose 114 H (74-99) mg/dL Assessment and Plan Assessment: Acute numbness and weakness of the left side due to acute/subacute CVA. MRI showed multiple acute cortical and subcortical ischemic type changes. Right-sided critical carotid stenosis of the internal carotid artery. Status post endarterectomy during this admission. Obesity BMI 42.2 Chronic thrombocytopenia. Etiology unknown. Platelet count is stable. Hypertension Hyperlipidemia Hypertension triglyceride anemia COPD History of carpal tunnel syndrome Ongoing nicotine addiction DVT prophylaxis Plan: Patient be continued on aspirin, Plavix and statins. MRI the cervical spine and MRI of the head was done. Neurology is following. Patient is status post right carotid endarterectomy. Blood pressure medications are being adjusted. Otherwise continue the current management and further recommendations based on the clinical course. Time with Patient: Greater than 30
[2019-03-15] MEDS: PANTOPRAZOLE 40 MG TABLET PO SCH (06:20)
[2019-03-15 06:29] LABS: Basophils % (A) 1 %; Eosinophils % (A) 1 %; HCT 42.4 % (39.0-53.0); HGB 13.9 gm/dL (13.0-17.5); Lymphocytes # (A) 1.6 k/uL (1.0-4.8); Lymphocytes % (A) 37 %; MCH 29.3 pg (25.0-35.0); MCHC 32.8 g/dL (31.0-37.0); MCV 89.4 fL (80.0-100.0); Monocytes # (A) 0.3 k/uL (0-1.0); Monocytes % (A) 7 %; Neutrophils # (A) 2.2 k/uL (1.3-7.7); Neutrophils % (A) 52 %; RBC 4.74 m/uL (4.30-5.90); WBC 4.2 k/uL (3.8-10.6)
[2019-03-15 06:43] LABS: Platelet Count 83 k/uL (150-450)
[2019-03-15 06:53] LABS: African American GFR (CKD) >90 (>60 ml/min/1.73 sqM); Anion Gap 10 mmol/L; Blood Urea Nitrogen 17 mg/dL (9-20); Calcium 9.1 mg/dL (8.4-10.2); Carbon Dioxide 24 mmol/L (22-30); Chloride 106 mmol/L (98-107); Glucose 128 mg/dL (74-99); Potassium 3.6 mmol/L (3.5-5.1); Sodium 140 mmol/L (137-145)
[2019-03-15] MEDS: TRIAMTERENE-HCTZ 37.5-25MG 1 EACH CAP PO SCH (09:09)
[2019-03-15] MEDS: HEPARIN SODIUM,PORCINE 5,000 UNIT/ML 1 ML VIAL SQ SCH ×2 (09:09→20:40)
[2019-03-15] MEDS: METOPROLOL SUCCINATE (ER) 100 MG TAB.ER.24H PO SCH (09:09)
[2019-03-15] MEDS: LOSARTAN 50 MG TAB PO SCH ×2 (09:09→20:40)
[2019-03-15] MEDS: ASPIRIN 81 MG PO SCH (09:09)
[2019-03-15] MEDS: CLOPIDOGREL 75 MG TAB PO SCH (09:09)
[2019-03-15] MEDS: NICOTINE 21MG/24HR PATCH TRANSDERM SCH (09:10)
[2019-03-15] MEDS: TAMSULOSIN 0.4 MG CAP.ER.24H PO SCH (09:10)
--- NOTE | 2019-03-15 13:13 | P.PN ---
Subjective Patient is a 59-year-old male with a known history of COPD, , hypertension, BPH and left ear deafness was admitted to the hospital due to significant weakness or numbness of the left lower extremity/foot. Patient had CT angiogram of the neck showed significant right internal carotid artery stenosis. MRA of the head and cervical spine could not be done due to significant claustrophobia. 2-D echocardiogram showed ejection fraction 50-60% with no significant valvular abnormalities. 03/11/2019 Patient underwent a right carotid endarterectomy with patch angioplasty was done today. Patient is still having some left foot numbness. No complaints of chest pain or shortness of breath. No nausea vomiting or abdominal pain. Tolerating oral di et. No dysuria or hematuria. No headache or dizziness or lightheadedness. No fever no chills. Cardiology to be consulted for GRACIELA to rule out any cardiac embolic. 03/12/2019 Patient denied any complaints of chest pain or shortness of breath. Left foot numbness is almost resolved. Patient is being continued on aspirin and high intensity statin. Patient was started on losartan. Nifedipine has been discontinued. Cardiology has seen the patient and recommended echo with bubble study and loop recorder to assess for atrial fibrillation. TSH level is within normal limits. Patient is scheduled for MRI of the C-spine this afternoon. Patient will be given Ativan 1 mg IV as needed for claustrophobia and anxiety. 03/13/2019 Patient denied any complaints of chest pain or shortness of breath. Left foot numbness almost resolved. Continued on losartan and Dyazide was added. Cardiology is planning for loop monitor tomorrow to assess for silent atrial fibrillation rate MRI of the cervical spine showed disc bulging and herniation at C4-C5, C5 6. No spinal stenosis of fracture. Neurology and cardiology is following. 03/14/2019 Patient denied any complaints of chest pain or shortness of breath. No complaints of left foot numbness. No other weakness noted. Blood pressure is fairly controlled. Patient had loop monitor placement today. Otherwise patient denied any new complaints. Patient is stable to be discharged to rehab once placement is available. All other review of systems negative except the above 03/15/2019 Patient is fully awake with no chest pain or dyspnea. No other new complaints. Still has left leg weakness which is stable. No change in urine or bowel hab its. He is hemodynamically stable and laboratory. With no significant abnormality. Patient is medically stable for discharge pending his insurance company approval for him to go to [facility] for inpatient rehab. Most likely to like a [facility]. Discussed with the patient and he wants to go to inpatient rehab. Objective - Vital Signs Vital signs: Vital Signs Temp 97.5 F L 03/15/19 08:00 Pulse 80 03/15/19 12:00 Resp 18 03/15/19 04:25 BP 162/79 03/15/19 12:00 Pulse Ox 97 03/15/19 12:00 Intake & Output 03/14/19 03/15/19 03/15/19 18:59 06:59 18:59 Intake Total 580 226 Balance 580 226 Weight 129 kg 126.9 kg Intake: IV 100 Oral 480 226 Other: # Voids 1 1 1 # Bowel Movements 1 ABP, PAP, CO, CI - Last Documented Arterial Blood Pressure 130/62 - Exam GENERAL: The patient is alert and oriented x3, not in any acute distress. Well developed, well nourished. HEENT: Pupils are round and equally reacting to light. EOMI. No scleral icterus. No conjunctival pallor. Normocephalic, atraumatic. No pharyngeal erythema. No thyromegaly. CARDIOVASCULAR: S1 and S2 present. No murmurs, rubs, or gallops. PULMONARY: Chest is clear to auscultation, no wheezing or crackles. ABDOMEN: Soft, nontender, nondistended, normoactive bowel sounds. No palpable organomegaly. MUSCULOSKELETAL: No joint swelling or deformity. EXTREMITIES: No cyanosis, clubbing, or pedal edema. -NEUROLOGICAL: Gross neurological examination did not reveal any focal deficits. Cranial nerves are grossly intact. Left lower leg weakness 4/5. Rest of lens strength is 5/5. No sensory deficit SKIN: No rashes. - Labs CBC & Chem 7: 03/15/19 05:33 03/15/19 05:33 Labs: Abnormal Lab Results - Last 24 Hours (Table) 03/15/19 03/15/19 Range/Units 05:33 05:33 Plt Count 83 L (150-450) k/uL Glucose 128 H (74-99) mg/dL Assessment and Plan Assessment: Acute numbness and weakness of the left side due to acute/subacute CVA. MRI showed multiple acute cortical and subcortical ischemic type changes. Right-sided critical carotid stenosis of the internal carotid artery. Status post endarterectomy during this admission. Obesity BMI 42.2 Chronic thrombocytopenia. Etiology unknown. Platelet count is stable. Hypertension Hyperlipidemia Hypertension triglyceride anemia COPD History of carpal tunnel syndrome Ongoing nicotine addiction DVT prophylaxis Plan: This is a pleasant 59 years old male who presents with CVA and left leg weakness. Continue with aspirin and Plavix. Continue with antihypertensive and statin. Patient is medically stable for discharge pending placement. Labs and medication were reviewed.. Continue same treatment. Continue with symptomatic treatment. Resume home medication. Monitor lytes and vitals. DVT and GI prophylaxis. Further recommendations of the clinical course of the patient DVT prophylaxis: Subcutaneous heparin GI Prophylaxis: Protonix Prognosis is guarded
--- NOTE | 2019-03-15 14:19 | P.PN ---
Subjective Progress Note Date: 03/15/19 Patient is doing well from a cardiac standpoint. He denied any chest discomfort dizziness lightheadedness or palpitations this morning. He is recovering well after his recent CVA. Blood pressure 162/79, heart rate 80. He denies any chest discomfort dizziness lightheadedness palpitations. No orthopnea. He was resting comfortably in bed. Patient was prepared for discharge yesterday to inpatient rehab but he states he is delayed doing to insurance authorization. On examination blood pressure is 162/79 mmHg pulse rate in the 80s afebrile Breath sounds are clear no rhonchi no crackles Heart sounds S1 and S2 are normal no murmurs or gallops no rub Abdomen soft nontender Breath sounds are clear Extremities are warm no edema Labs reviewed hemoglobin 13.9 Sodium 140 potassium 3.6 BUN 17, creatinine 0.9 Impression Bilateral embolic strokes that are not explained by the extent of his right-bienvenido ed carotid artery disease Status post carotid endarterectomy Uncontrolled hypertension now better controlled after stopping clonidine and nifedipine starting losartan 50 g twice daily Continue Dyazide He takes only 10 mg of Crestor because it causes abdominal discomfort the first switched him to atorvastatin currently 80 mg by mouth daily for a goal of LDL less than 50 Aspirin has been reduced to 81 mg daily His bubble study did not show any evidence for [id number] shunting at the atrial level Low HDL and elevated triglycerides and LDL 112 mg/dL on Crestor 10 mg by mouth daily Plan Recommend loop monitor implantation to look for atrial fibrillation to explain his bilateral embolic strokes Statins at an appropriate dose that would reduce LDL to close to 50 mm of deciliter Weight reduction sleep apnea assessment Hypertension controlled on losartan 50 mg twice daily and Dyazide Continue metoprolol Stop Procardia and stop clonidine f/u with dr espino in 2 weeks Nurse practitioner note has been reviewed, I agree with the documentated findings and plan of care. Patient was seen and examined. Objective - Vital Signs Vital signs: Vital Signs Temp 97.5 F L 03/15/19 08:00 Pulse 80 03/15/19 12:00 Resp 18 03/15/19 04:25 BP 162/79 03/15/19 12:00 Pulse Ox 97 03/15/19 12:00 Intake & Output 03/14/19 03/15/19 03/15/19 18:59 06:59 18:59 Intake Total 580 226 Balance 580 226 Weight 129 kg 126.9 kg Intake: IV 100 Oral 480 226 Other: # Voids 1 1 1 # Bowel Movements 1 ABP, PAP, CO, CI - Last Documented Arterial Blood Pressure 130/62 - Labs CBC & Chem 7: 03/15/19 05:33 03/15/19 05:33 Labs: Abnormal Lab Results - Last 24 Hours (Table) 03/15/19 03/15/19 Range/Units 05:33 05:33 Plt Count 83 L (150-450) k/uL Glucose 128 H (74-99) mg/dL
[2019-03-15] MEDS: ATORVASTATIN 80 MG TAB PO SCH (20:40)
[2019-03-16] MEDS: PANTOPRAZOLE 40 MG TABLET PO SCH (06:43)
[2019-03-16] MEDS: CLOPIDOGREL 75 MG TAB PO SCH (08:18)
[2019-03-16] MEDS: METOPROLOL SUCCINATE (ER) 100 MG TAB.ER.24H PO SCH (08:18)
[2019-03-16] MEDS: LOSARTAN 50 MG TAB PO SCH ×2 (08:18→20:20)
[2019-03-16] MEDS: TRIAMTERENE-HCTZ 37.5-25MG 1 EACH CAP PO SCH (08:18)
[2019-03-16] MEDS: NICOTINE 21MG/24HR PATCH TRANSDERM SCH (08:18)
[2019-03-16] MEDS: ASPIRIN 81 MG PO SCH (08:19)
[2019-03-16] MEDS: HEPARIN SODIUM,PORCINE 5,000 UNIT/ML 1 ML VIAL SQ SCH ×2 (08:20→20:20)
--- NOTE | 2019-03-16 11:02 | P.PN ---
Subjective Patient is a 59-year-old male with a known history of COPD, , hypertension, BPH and left ear deafness was admitted to the hospital due to significant weakness or numbness of the left lower extremity/foot. Patient had CT angiogram of the neck showed significant right internal carotid artery stenosis. MRA of the head and cervical spine could not be done due to significant claustrophobia. 2-D echocardiogram showed ejection fraction 50-60% with no significant valvular abnormalities. 03/11/2019 Patient underwent a right carotid endarterectomy with patch angioplasty was done today. Patient is still having some left foot numbness. No complaints of chest pain or shortness of breath. No nausea vomiting or abdominal pain. Tolerating oral di et. No dysuria or hematuria. No headache or dizziness or lightheadedness. No fever no chills. Cardiology to be consulted for GRACIELA to rule out any cardiac embolic. 03/12/2019 Patient denied any complaints of chest pain or shortness of breath. Left foot numbness is almost resolved. Patient is being continued on aspirin and high intensity statin. Patient was started on losartan. Nifedipine has been discontinued. Cardiology has seen the patient and recommended echo with bubble study and loop recorder to assess for atrial fibrillation. TSH level is within normal limits. Patient is scheduled for MRI of the C-spine this afternoon. Patient will be given Ativan 1 mg IV as needed for claustrophobia and anxiety. 03/13/2019 Patient denied any complaints of chest pain or shortness of breath. Left foot numbness almost resolved. Continued on losartan and Dyazide was added. Cardiology is planning for loop monitor tomorrow to assess for silent atrial fibrillation rate MRI of the cervical spine showed disc bulging and herniation at C4-C5, C5 6. No spinal stenosis of fracture. Neurology and cardiology is following. 03/14/2019 Patient denied any complaints of chest pain or shortness of breath. No complaints of left foot numbness. No other weakness noted. Blood pressure is fairly controlled. Patient had loop monitor placement today. Otherwise patient denied any new complaints. Patient is stable to be discharged to rehab once placement is available. 03/15/2019 Patient is fully awake with no chest pain or dyspnea. No other new complaints. Still has left leg weakness which is stable. No change in urine or bowel habits. He is hemodynamically stable and laboratory. With no significant abnormality. Patient is medically stable for discharge pending his insurance company approval for him to go to [facility] for inpatient rehab. Most likely to like a [facility]. Discussed with the patient and he wants to go to inpatient rehab. 03/16/2019 Patient with known new complaints. No chest pain or dyspnea. Still has weakness in his left lower extremity. Vitals are stable. He is medically stable. Pending insurance approval before going to [facility] for rehab Objective - Vital Signs Vital signs: Vital Signs Temp 98.5 F 03/16/19 08:00 Pulse 68 03/16/19 08:00 Resp 18 03/16/19 08:00 BP 144/82 03/16/19 08:00 Pulse Ox 96 03/16/19 08:00 Intake & Output 03/15/19 03/16/19 03/16/19 18:59 06:59 18:59 Intake Total 648 Balance 648 Weight 136.1 kg Intake: Oral 648 Other: Voiding Method Urinal Toilet Urinal # Voids 1 1 # Bowel Movements 1 ABP, PAP, CO, CI - Last Documented Arterial Blood Pressure 130/62 - Exam GENERAL: The patient is alert and oriented x3, not in any acute distress. Well developed, well nourished. HEENT: Pupils are round and equally reacting to light. EOMI. No scleral icterus. No conjunctival pallor. Normocephalic, atraumatic. No pharyngeal erythema. No thyromegaly. CARDIOVASCULAR: S1 and S2 present. No murmurs, rubs, or gallops. PULMONARY: Chest is clear to auscultation, no wheezing or crackles. ABDOMEN: Soft, nontender, nondistended, normoactive bowel sounds. No palpable organomegaly. MUSCULOSKELETAL: No joint swelling or deformity. EXTREMITIES: No cyanosis, clubbing, or pedal edema. -NEUROLOGICAL: Gross neurological examination did not reveal any focal deficits. Cranial nerves are grossly intact. Left lower leg weakness 4/5. Rest of lens strength is 5/5. No sensory deficit SKIN: No rashes. - Labs CBC & Chem 7: 03/15/19 05:33 03/15/19 05:33 Assessment and Plan Assessment: Acute numbness and weakness of the left side due to acute/subacute CVA. MRI showed multiple acute cortical and subcortical ischemic type changes. Right-sided critical carotid stenosis of the internal carotid artery. Status post endarterectomy during this admission. Obesity BMI 42.2 Chronic thrombocytopenia. Etiology unknown. Platelet count is stable. Hypertension Hyperlipidemia Hypertension triglyceride anemia COPD History of carpal tunnel syndrome Ongoing nicotine addiction DVT prophylaxis Plan: This is a pleasant 59 years old male who presents with CVA and left leg weakness. Continue with aspirin and Plavix. Continue with antihypertensive and statin. Patient is medically stable for discharge pending placement. Labs and medication were reviewed.. Continue same treatment. Continue with symptomatic treatment. Resume home medication. Monitor lytes and vitals. DVT and GI prophylaxis. Further recommendations of the clinical course of the patient DVT prophylaxis: Subcutaneous heparin GI Prophylaxis: Protonix Prognosis is guarded
[2019-03-16] MEDS: TAMSULOSIN 0.4 MG CAP.ER.24H PO SCH (11:08)
[2019-03-16] MEDS: ATORVASTATIN 80 MG TAB PO SCH (20:20)
[2019-03-16 23:46] VITALS: RESP 16
[2019-03-17] MEDS: PANTOPRAZOLE 40 MG TABLET PO SCH (06:19)
[2019-03-17] MEDS: NICOTINE 21MG/24HR PATCH TRANSDERM SCH (06:23)
[2019-03-17 07:35] VITALS: BP 135/80; PULSE 76; TEMP 98.3
[2019-03-17] MEDS: TAMSULOSIN 0.4 MG CAP.ER.24H PO SCH (08:51)
[2019-03-17] MEDS: HEPARIN SODIUM,PORCINE 5,000 UNIT/ML 1 ML VIAL SQ SCH (08:51)
[2019-03-17] MEDS: CLOPIDOGREL 75 MG TAB PO SCH (08:51)
[2019-03-17] MEDS: LOSARTAN 50 MG TAB PO SCH (08:51)
[2019-03-17] MEDS: TRIAMTERENE-HCTZ 37.5-25MG 1 EACH CAP PO SCH (08:51)
[2019-03-17] MEDS: METOPROLOL SUCCINATE (ER) 100 MG TAB.ER.24H PO SCH (08:52)
[2019-03-17] MEDS: ASPIRIN 81 MG PO SCH (08:52)
[2019-03-17 10:40] VITALS: BMI 40.7
== END 2019-03-17 13:01 | disposition home health service (06) | DRG 38 ==
LOC: EC 17:24 → 3NMEDONC 18:57 → 3SCARD 20:44 → 2SICU 03-11 06:44 → 3SCARD 03-11 06:57 → 2SICU 03-11 09:24 → 3SCARD 03-12 19:43
PROVIDERS: ADMIT Hospitalist; ATTEND Hospitalist
PROC: 03UK0KZ Supplement Right Internal Carotid Artery with Nonautologous Tissue Substitute, Open Approach (ICD-10-PCS; 2019-03-11)
PROC: 03CK0ZZ Extirpation of Matter from Right Internal Carotid Artery, Open Approach (ICD-10-PCS; principal; 2019-03-11 12:10)
PROC: 0JH602Z Insertion of Monitoring Device into Chest Subcutaneous Tissue and Fascia, Open Approach (ICD-10-PCS; 2019-03-14)
DX: I63.411 Cerebral infarction due to embolism of right middle cerebral artery (principal); Z68.41 Body mass index [BMI] 40.0-44.9, adult; G81.94 Hemiplegia, unspecified affecting left nondominant side; I65.21 Occlusion and stenosis of right carotid artery; J44.9 Chronic obstructive pulmonary disease, unspecified; N40.0 Benign prostatic hyperplasia without lower urinary tract symptoms; R29.810 Facial weakness; Z79.82 Long term (current) use of aspirin; Z79.899 Other long term (current) drug therapy; Z80.9 Family history of malignant neoplasm, unspecified; Z86.73 Personal history of transient ischemic attack (TIA), and cerebral infarction without residual deficits; H91.92 Unspecified hearing loss, left ear; D69.6 Thrombocytopenia, unspecified; E66.01 Morbid (severe) obesity due to excess calories; E78.1 Pure hyperglyceridemia; E78.5 Hyperlipidemia, unspecified; F17.210 Nicotine dependence, cigarettes, uncomplicated; F40.240 Claustrophobia; G47.00 Insomnia, unspecified; G47.30 Sleep apnea, unspecified; I10 Essential (primary) hypertension
CPT/HCPCS: 33285; 36415; 70450; 70498; 70551; 71045; 72156; 80048; 80053; 80061; 81003; 83036; 84443; 84484; 85025; 85610; 85730; 86850; 86900; 86901; 88304; 93005; 93306; 93308; 93880; 96360; 96361; 99285

== ENCOUNTER 2019-09-18 12:30 | Day surgery (SDC) | payer OTHER ==
[~2019-09-18 12:30] MED LIST: HYDROmorphone 0.5 MG/0.5 ML SYRINGE IVP PRN; MIDAZOLAM 2 MG/2 ML VIAL IV PRN; ONDANSETRON 4 MG/2 ML VIAL IVP ONE; SODIUM CHLORIDE 0.9% 1,000 ML IV SCH
[2019-09-18] MEDS ORDERED: ceFAZolin 1,000 MG in SODIUM CHLORIDE 0.9% IRRIGATIO 250 ML IRRIGATION ONE (13:00)
[2019-09-18] MEDS: SODIUM CHLORIDE 0.9% 1,000 ML IV SCH (13:15)
[2019-09-18] MEDS ORDERED: fentaNYL (PF) 50 MCG/ML 2 ML AMP ONE (14:30)
[2019-09-18] MEDS ORDERED: MIDAZOLAM 2 MG/2 ML VIAL ONE (14:30)
[2019-09-18] MEDS ORDERED: PROPOFOL 10 MG/ML 20 ML VIAL IV ONE (14:30)
[2019-09-18] MEDS ORDERED: IOPAMIDOL-370 50ML BTL INJ ONE (14:54)
[2019-09-18] MEDS ORDERED: LIDOCAINE 1% INJ 10MG/ML (20 ML MDV) SQ ONE ×2 (15:17→15:29)
[2019-09-18] MEDS ORDERED: ACETAMINOPHEN TAB 325 MG TAB PO PRN (17:30)
[2019-09-18] MEDS ORDERED: HYDROcodone/APAP 5-325MG 1 EACH TAB PO PRN (17:30)
--- NOTE | 2019-09-18 17:41 | P.PCN ---
Preoperative Diagnosis: Left upper extremity venogram 50 mL of IV dye was injected in the left upper extremity and a patent left axillary left subclavian and innominate system was noted
--- NOTE | 2019-09-18 17:43 | P.PRLE ---
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 Since he will require significant RV pacing, a biventricular system was implanted with His bundle pacing Patients with AV node disease or severe bradycardia, in whom the anticipated right ventricular pacing percentage will be high with standard dual-chamber pacing are at a disadvantage since RV pacing over years promotes LV systolic dysfunction and heart failure as well as increased episodes of atrial fibrillation. Biventricular pacing either using an LV lead in the coronary epicardial veins or His bundle pacing promotes a synchronized LV contraction and preserves LV systolic function with reduction in heart failure. One advantage of His bundle pacing is that it promotes conduction down both the normal bundles, simulating intrinsic conduction and preserving LV systolic function This is especially so in patients who already have LV dysfunction Thank you for entrusting me with the care of the patient Warm regards Sincerely Mega Maynard
[2019-09-18] MEDS ORDERED: amLODIPine 5 MG TAB PO STA (18:41)
[2019-09-18] MEDS ORDERED: ACETAMINOPHEN IV (For NPO) 1,000 MG in EMPTY BAG 1 BAG IVPB ONE (19:00)
[2019-09-18] MEDS: LACTATED RINGERS 1,000 ML IV SCH (19:21)
--- NOTE | 2019-09-18 20:24 | PCN ---
PROCEDURE NOTE This is a 59-year-old male patient who has symptomatic second-degree AV block with bradycardia that was documented with a loop monitor. He was brought in for biventricular pacemaker implantation. Standard dual-chamber pacing would result in high RV pacing percentage greater than 40%, and therefore a biventricular device was recommended. Patient was brought to the EP lab in a fasting state. Written informed consent was obtained prior to the procedure. The left shoulder area was prepped and draped as per protocol and 1% lidocaine was used for local anesthesia. A 4 cm incision was made parallel to the deltopectoral groove, about 1.5 cm medial to it. The incision was carried down to the level of the pectoralis muscle. A subfascial pocket was made. Hemostasis was assured. The left axillary vein was accessed at 3 separate points under fluoroscopy and via appropriately-sized introducer sheaths, 3 leads were positioned. The atrial lead was a Medtronic model #5076, 52 cm in length and serial number [id number]. This was screwed in the right atrial appendage. P-waves were 4.4 mV. Pacing impedance 1137 ohms, pacing threshold 1 V at 0.5 milliseconds. Ten-volt test was negative. The RV lead was a Medtronic model #5076, 58 cm in length and serial number [id number]. R-waves were 16.8 mV. Pacing impedance of 870 ohms. Pacing threshold 0.3 V at 0.5 milliseconds. Ten-volt test was negative. The third lead was a Medtronic model #3830, 69 cm in length and serial number [id number]. This was screwed in the right bundle area and a good His bundle signal was noted. HV interval was 48 milliseconds. Nonselective pacing was noted with loss of nonselective His bundle capture at 1.2 V (onset of RV capture). Complete loss of RV capture at 0.7 V at 1 millisecond. Pacing impedance 576 ohms. All 3 leads were secured to the underlying pectoralis muscle using 2 nonabsorbable sutures each. Hemostasis was achieved with Aquamantys system. The leads were connected to the generator (Jessica CRTP MT model number W1TR02, serial number [id number]. Leads and the generator were then placed in the subfascial pocket and the wound was closed in 3 layers and dressed per protocol. RESULT: Successful biventricular pacemaker implantation with implantation of His bundle lead. Nonselective capture was noted with good thresholds. The device was programmed to DDD mode with preferential His bundle pacing and a backup RV pacing. The patient tolerated the procedure well without any acute complications. MMCALEB / IJN: [id number] /
[2019-09-18] MEDS ORDERED: VALSARTAN 160 MG TAB PO SCH (21:00)
[2019-09-18] MEDS ORDERED: ATORVASTATIN 80 MG TAB PO SCH (21:00)
[2019-09-18] MEDS: amLODIPine 5 MG TAB PO SCH (23:46)
[2019-09-19] MEDS: SODIUM CHLORIDE 0.9% 1,000 ML IV SCH (00:19)
[2019-09-19] MEDS: LACTATED RINGERS 1,000 ML IV SCH (01:41)
[2019-09-19 07:48] VITALS: RESP 18
--- NOTE | 2019-09-19 07:54 | P.DS ---
Providers Attending physician: Mega Maynard Primary care physician: [facility] Course: Patient is doing well. His ICD site is sore but there is no hematoma no swelling Vitals are stable Breath sounds are clear no rhonchi no crackles Heart sounds S1 and S2 are normal no murmurs or gallops or rub Extremities warm no edema Blood pressure 131/81 mmHg respirations normal, pulse rate in the 70s, afebrile 97.9F Impression Symptomatic intermittent AV block status post: Pacemaker implantation Hypertension Suggest Increase amlodipine to 5 mg twice daily Continue other medications Follow-up in the device clinic next week Plan - Discharge Summary New Discharge Prescriptions: New amLODIPine [Norvasc] 5 mg PO BID #180 tab Discontinued amLODIPine [Norvasc] 5 mg PO DAILY No Action Triamterene-Hctz 37.5-25Mg [Dyazide 37.5-25 Capsule] 1 cap PO DAILY #90 capsule Aspirin EC [Ecotrin Low Dose] 81 mg PO DAILY #90 tablet. Clopidogrel Bisulfate [Plavix] 75 mg PO DAILY #90 tab Ipratropium/Albuterol Sulfate [Combivent Respimat Inhaler] 1 puff INHALATION QID Valsartan [Diovan] 320 mg PO HS Umeclidinium [place] [Incruse Ellipta] 1 puff INHALATION DAILY Atorvastatin [Lipitor] 80 mg PO HS Discharge Medication List Aspirin EC [Ecotrin Low Dose] 81 mg PO DAILY #90 tablet. 03/14/19 [Rx] Clopidogrel Bisulfate [Plavix] 75 mg PO DAILY #90 tab 03/14/19 [Rx] Triamterene-Hctz 37.5-25Mg [Dyazide 37.5-25 Capsule] 1 cap PO DAILY #90 capsule 03/14/19 [Rx] Ipratropium/Albuterol Sulfate [Combivent Respimat Inhaler] 1 puff INHALATION QID 09/17/19 [History] Umeclidinium [place] [Incruse Ellipta] 1 puff INHALATION DAILY 09/17/19 [History] Valsartan [Diovan] 320 mg PO HS 09/17/19 [History] Atorvastatin [Lipitor] 80 mg PO HS 09/18/19 [History] amLODIPine [Norvasc] 5 mg PO BID #180 tab 09/18/19 [Rx] Follow up Appointment(s)/Referral(s): Mega Maynard MD [STAFF PHYSICIAN] - 1 Week (Follow-up the device clinic in 5 days follow up with Dr. Maynard/Lenka Laguna/Darcy Hayden in 3 months) Activity/Diet/Wound Care/Special Instructions: PATIENT EDUCATION MATERIAL Instructions following a heart rhythm device implant. 1. Keep dressing DRY for 5 DAYS. You may cover the area with Saran or Cling Wrap, prior to a shower. 2. The dressing will be removed in the Device Clinic at [facility]. Absorbable sutures were used to close the wound. 3. Avoid raising the left arm above the shoulder level. 4 week restriction 4. Avoid arm movements, like backscratching, rubbing the head, or pulling on a cord. 4 weeks restriction 5. Gentle range of motion movements of the shoulder, closest to the incision should be performed to avoid a frozen shoulder. (Pendulum exercises of the shoulder) 6. The opposite arm may be used freely. 7. Avoid driving for 7 days. 8. Avoid activities such as golfing, swimming, weed whacking, lifting more than 10 pounds weight, bowling, gymnastics and weight training/lifting. (6 weeks restriction) 9. Activities such as wood chopping with an axe, pull-ups in the gymnasium, power lifting, arc-welding, being close to home induction cooktops will always be a problem. 10. Arm sling is only a reminder not to raise the arm above the head. You do not need to keep the arm completely immobilized. Your free to move the arm and use it and for normal activities. In case of any problems, please call [facility] [place], @ [phone], Attention: Device Clinic Device clinic follow-up in 5 days Follow-up with primary finisher [facility] in 2-3 months Increase amlodipine to 5 mg twice a day, continue all other medications as previously prescribed Discharge Disposition: HOME SELF-CARE
[2019-09-19] MEDS: amLODIPine 5 MG TAB PO SCH (08:21)
[2019-09-19] MEDS: IPRATROPIUM 0.5 MG/2.5 ML NEBU INHALATION SCH ×3 (08:24→16:08)
[2019-09-19] MEDS ORDERED: ASPIRIN 81 MG PO SCH (09:00)
[2019-09-19] MEDS ORDERED: TRIAMTERENE-HCTZ 37.5-25MG 1 EACH CAP PO SCH (09:00)
[2019-09-19] MEDS ORDERED: CLOPIDOGREL 75 MG TAB PO SCH (09:00)
--- NOTE | 2019-09-19 09:01 | XR ---
EXAMINATION TYPE: XR chest 2V DATE OF EXAM: 09/19/2019 COMPARISON: 03/08/2019 TECHNIQUE: PA and lateral views submitted. HISTORY: Replacement check FINDINGS: The lungs are clear and there is no pneumothorax, pleural effusion, or focal pneumonia. Multi lead pacemaker is seen with no evidence of thorax. Arthropathy shoulders. Hypertrophic change of the spine . IMPRESSION: 1. No postprocedural complication.
[2019-09-19 11:29] VITALS: TEMP 97.4
[2019-09-19 16:24] VITALS: BP 154/91; PULSE 82
== END 2019-09-19 17:10 | disposition home or self-care (01) ==
LOC: CATHEP 12:30 → 1SOBS 17:54 → CATHEP 09-19 17:10
PROVIDERS: ATTEND Internal Medicine Clinical Cardiac Electrophysiology
DX: I44.1 Atrioventricular block, second degree (principal); R00.1 Bradycardia, unspecified; I10 Essential (primary) hypertension; E78.5 Hyperlipidemia, unspecified; Z72.0 Tobacco use; Z79.02 Long term (current) use of antithrombotics/antiplatelets; Z79.82 Long term (current) use of aspirin; Z79.899 Other long term (current) drug therapy
CPT/HCPCS: 33225; 33208; 71046; C1769 ×3; C1892; C1898; C2621; J2250; J0690 ×2; J2001; J3010; J2704; Q9967

== ENCOUNTER 2021-12-29 14:32 | Day surgery (SDC) | payer MEDICARE, OTHER ==
[2021-12-28 14:22] VITALS: BMI 43.4
--- NOTE | 2021-12-28 14:36 | HP ---
HISTORY AND PHYSICAL DATE OF SURGERY: 12/29/2021 Gurmeet Elkins is a 61-year-old gentleman seen with progressive right knee pain. We discussed options for treatment. He elected to proceed with right knee arthroscopy. Consent was obtained. Cardiac clearance was provided by Dr. Maynard. PAST MEDICAL HISTORY: Cardiovascular disease, hyperlipidemia, hypertension. PAST SURGICAL HISTORY: Pacemaker insertion, carotid endarterectomy, knee arthroscopy. DAILY MEDICATIONS: Atorvastatin, valsartan, carvedilol, Naprosyn, aspirin. ALLERGIES: NONE. SOCIAL HISTORY: He smokes cigarettes. PHYSICAL EVALUATION OF RIGHT KNEE: Range of motion is zero to 125. Mild effusion. Tenderness, medial joint line. Positive medial Reji's. Ligaments stable. Hip rotation without pain. Distal neurovascular exam intact. Right knee radiographs reveal some moderate osteoarthritic changes. MRI right knee revealed medial meniscal tear. IMPRESSION: 1. Internal derangement of right knee with medial meniscal tear. 2. Hypertension. 3. Hyperlipidemia. 4. Cardiovascular disease. PLAN: Right knee arthroscopy with partial medial meniscectomy and debridement. MMODL / IJN: [id number] /
[~2021-12-29 14:32] MED LIST changes: +DEXAMETHASONE SOD PHOSPHATE 4 MG/ML 1 ML VIAL IV ONE; +LACTATED RINGERS 1,000 ML IV SCH; +LIDOCAINE 1% (10MG/ML) FOR IV START INTRADERMA PRN; +METOCLOPRAMIDE 5 MG/ML 2 ML VIAL IVP PRN; -SODIUM CHLORIDE 0.9% 1,000 ML IV SCH; +ceFAZolin 3 GM in SODIUM CHLORIDE 0.9% 100 ML IVPB PRN; +fentaNYL (PF) 50 MCG/ML 2 ML AMP IVP PRN
[2021-12-29] MEDS ORDERED: BUPIVACAINE (PF) 0.25% 30 ML VIAL INTRAARTIC ONE ×2 (16:39→17:46)
[2021-12-29] MEDS ORDERED: MIDAZOLAM 2 MG/2 ML VIAL ONE (17:12)
[2021-12-29] MEDS ORDERED: fentaNYL (PF) 50 MCG/ML 2 ML AMP ONE (17:12)
[2021-12-29] MEDS ORDERED: LIDOCAINE 2% INJ 20 MG/ML (2 ML VIAL) ONE (17:12)
[2021-12-29] MEDS ORDERED: PROPOFOL 10 MG/ML 20 ML VIAL IV ONE (17:12)
[2021-12-29] MEDS ORDERED: SUCCINYLCHOLINE CHLORIDE VIAL 200 MG/10 ML VIAL IV ONE (17:12)
--- NOTE | 2021-12-29 17:58 | P.OP ---
Date of Procedure: 12/29/21 Preoperative Diagnosis: Internal derangement right knee Postoperative Diagnosis: 1. Complex tear medial meniscus right knee 2. Partial ACL tear right knee 3. Reactive synovitis medial, lateral and suprapatellar compartments right knee Procedure(s) Performed: 1. Arthroscopic partial medial meniscectomy right knee 2. Arthroscopic debridement partial ACL tear right knee 3. Arthroscopic partial synovectomy medial, lateral and suprapatellar compartme nts right knee Anesthesia: DELFINA, local Surgeon: Dashawn Reynolds Estimated Blood Loss (ml): 7 Pathology: none sent Condition: stable Disposition: PACU Indications for Procedure: 61-year-old patient seen with progressive right knee pain. After treatment options were discussed, he elected to proceed with arthroscopy. Operative Findings: See description of procedure Description of Procedure: Patient was taken to the operative suite. Patient underwent a general anesthetic by the department of anesthesia. Patient was given preoperative antibiotics. The right lower extremity was placed in a well-padded arthroscopic leg nicole. The right leg was prepped and draped in the normal sterile orthopedic fashion. A lateral parapatellar and suprapatellar incision was made. Trochars were inserted. Arthroscopy was initiated. Suprapatellar pouch revealed diffuse thick reactive synovitis. The patellofemoral joint appeared to articulate congruently. 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 The scope was guided into the medial gutter. No loose bodies or plica were identified. The scope was then guided into the medial compartment. A medial parapatellar incision was made. Trocar inserted followed by probe. There was a complex tear involving the posterior horn medial meniscus extending into the midbody area. There were grade 2 chondromalacia changes of the medial compartment with no Hayden and osteochondral tears present. There was some thick reactive synovitis anteriorly. I performed a partial medial meniscectomy getting down to stable meniscal tissue. I performed a partial synovectomy decompressing the thick reactive synovitis anteriorly. The shaver was now removed. The residual meniscus was stable. There was good decompression was synovitis. Scope and probe were then guided into the intercondylar notch. There was significant partial tear of the anterior cruciate ligament. It appeared to represent approximately 50% of the ACL fibers. I introduced a motorized shaver and I debrided that out. The residual ACL fibers were noted to be intact and stable. The PCL was intact.. The scope and probe were then guided into lateral compartment. Lateral meniscus was probed and was found to be stable. There was mild grade 1 chondromalacia involving lateral compartment. There were no meniscal tears. There was thick reactive synovitis anteriorly. I introduced a motorized shaver and I performed a partial synovectomy. Shaver was now removed. There was good decompression of the synovitis. The scope was in guided back into the suprapatellar compartment. I introduced a motorized shaver into the suprapatellar compartment. I debrided some piecemeal fragments that I encountered there. I performed a partial synovectomy. The shaver was now removed. There was good decompression of the synovitis noted. I now took one more look around the entire knee, no residual debris. Instruments were now removed from the joint. The joint was infiltrated with .25% Marcaine. Steri-Strips were applied to the portal sites. Sterile dressings were applied. The patient was placed into a HARDIK hose. No tourniquet was utilized. The patient was awakened, transferred to a bed and taken to recovery stable satisfactory condition.
[2021-12-29 18:11] VITALS: RESP 16; TEMP 97.1
[2021-12-29 18:47] VITALS: BP 122/58; PULSE 64
== END 2021-12-29 19:18 | disposition home or self-care (01) ==
LOC: OR 14:32
PROVIDERS: ATTEND Orthopaedic Surgery
DX: M23.203 Derangement of unspecified medial meniscus due to old tear or injury, right knee (principal); S83.511A Sprain of anterior cruciate ligament of right knee, initial encounter; X58.XXXA Exposure to other specified factors, initial encounter; M65.861 Other synovitis and tenosynovitis, right lower leg; I25.10 Atherosclerotic heart disease of native coronary artery without angina pectoris; I10 Essential (primary) hypertension; E78.5 Hyperlipidemia, unspecified; F17.210 Nicotine dependence, cigarettes, uncomplicated; E66.01 Morbid (severe) obesity due to excess calories; Z68.41 Body mass index [BMI] 40.0-44.9, adult; Z97.2 Presence of dental prosthetic device (complete) (partial); Z95.0 Presence of cardiac pacemaker; Z98.890 Other specified postprocedural states; Z79.1 Long term (current) use of non-steroidal anti-inflammatories (NSAID); Z79.811 Long term (current) use of aromatase inhibitors; Z79.899 Other long term (current) drug therapy; Z79.02 Long term (current) use of antithrombotics/antiplatelets; Z79.82 Long term (current) use of aspirin
CPT/HCPCS: 29881; 29876; J2250; J0330; J1100; J0690; J2405; J3010; J2704; J2001

== ENCOUNTER 2023-01-09 09:22 | Day surgery (SDC) | payer MEDICARE, OTHER ==
[~2023-01-09 09:22] MED LIST changes: -DEXAMETHASONE SOD PHOSPHATE 4 MG/ML 1 ML VIAL IV ONE; -HYDROmorphone 0.5 MG/0.5 ML SYRINGE IVP PRN; -METOCLOPRAMIDE 5 MG/ML 2 ML VIAL IVP PRN; -MIDAZOLAM 2 MG/2 ML VIAL IV PRN; -ONDANSETRON 4 MG/2 ML VIAL IVP ONE; -ceFAZolin 3 GM in SODIUM CHLORIDE 0.9% 100 ML IVPB PRN; -fentaNYL (PF) 50 MCG/ML 2 ML AMP IVP PRN
[2023-01-09 10:41] VITALS: RESP 16; TEMP 96.8
[2023-01-09] MEDS ORDERED: LIDOCAINE 2% INJ 20 MG/ML (2 ML VIAL) ONE (11:01)
[2023-01-09] MEDS ORDERED: PROPOFOL 10 MG/ML 20 ML VIAL IV ONE (11:01)
--- NOTE | 2023-01-09 11:20 | P.PCN ---
Date of Procedure: 01/09/23 Procedure(s) Performed: BRIEF HISTORY: Patient is a 62-year-old, pleasant, white male with well compensated liver cirrhosis, scheduled for an upper endoscopy to screen for esophageal varices. PROCEDURE PERFORMED: Esophagogastroduodenoscopy with biopsy. PREOPERATIVE DIAGNOSIS: History of liver cirrhosis screening for esophageal varices. IV sedation per anesthesia. PROCEDURE: After informed consent was obtained, the patient was brought into the endoscopy unit. IV sedation was administered by Anesthesia under continuous monitoring. Initially the Olympus GIF-140 video endoscope was inserted into the mouth. Esophagus intubated without any difficulty. It was gradually advanced into the stomach and duodenum and carefully examined. The bulb and the second part of the duodenum appeared normal. The scope at this time was withdrawn to the stomach, adequately insufflated with air, and upon careful examination, mucosa of the antrum, body, cardia and the fundus had gastritis and changes consistent with portal hypertensive gastropathy. Biopsies were done from the antrum. No gastric varices seen.. The scope was then withdrawn into the esophagus. The GE junction was located at 39 cm from the incisors. Small distal esophageal varices seen. The esophagus appeared normal. There were no erosions or ulcerations seen and the patient tolerated the procedure well. IMPRESSION: 1. Small distal esophageal varices. 2. No evidence of gastric varices 3.. Mild antral gastritis: Hypertensive gastropathy RECOMMENDATIONS: The findings of this examination were discussed with the patient well as his family. He was advised to follow with the biopsy results. Plan a repeat upper endoscopy in 2-3 years for follow-up esophageal varices.
[2023-01-09 11:52] VITALS: BP 118/68; PULSE 56
== END 2023-01-09 12:13 | disposition home or self-care (01) ==
LOC: ORWHC2ENDO 09:22
PROVIDERS: ATTEND Internal Medicine Gastroenterology
DX: K29.50 Unspecified chronic gastritis without bleeding (principal); I85.00 Esophageal varices without bleeding; K31.9 Disease of stomach and duodenum, unspecified; K74.60 Unspecified cirrhosis of liver; I11.0 Hypertensive heart disease with heart failure; I50.9 Heart failure, unspecified; E78.5 Hyperlipidemia, unspecified; G47.33 Obstructive sleep apnea (adult) (pediatric); F17.210 Nicotine dependence, cigarettes, uncomplicated; Z79.899 Other long term (current) drug therapy; Z98.890 Other specified postprocedural states
CPT/HCPCS: 88305; 43239; J2704; J2001